=== PATIENT | male | born 1980 | race Caucasian/White ===

== ENCOUNTER → 2022-01-13 13:35 | Outpatient (BNVA) | payer MEDICARE, MEDICAID, SELFPAY | PROVIDERS: Visit Provider Family Medicine | DX: N18.6 End stage renal disease (principal); Z99.2 Dependence on renal dialysis; M25.50 Pain in unspecified joint; M25.40 Effusion, unspecified joint; R53.83 Other fatigue; R06.00 Dyspnea, unspecified; K50.90 Crohn's disease, unspecified, without complications; J40 Bronchitis, not specified as acute or chronic; D72.18 Eosinophilia in diseases classified elsewhere | CPT/HCPCS: 80053; 84439; 84443; 84550; 85025; 85651; 86140 ==

== ENCOUNTER → 2022-02-08 13:48 | Outpatient (BNVA) | payer MEDICARE, MEDICAID, SELFPAY | PROVIDERS: PCP Family Medicine; Referring Provider Family Medicine; Visit Provider Otolaryngology | DX: D72.18 Eosinophilia in diseases classified elsewhere (principal); J40 Bronchitis, not specified as acute or chronic; N18.6 End stage renal disease; R06.00 Dyspnea, unspecified; Z99.2 Dependence on renal dialysis; Z87.891 Personal history of nicotine dependence; I10 Essential (primary) hypertension; K21.9 Gastro-esophageal reflux disease without esophagitis; H69.83 Other specified disorders of Eustachian tube, bilateral; H93.12 Tinnitus, left ear | CPT/HCPCS: 99203; 99204 ==

== ENCOUNTER → 2022-03-02 11:10 | Outpatient (BNVA) | payer MEDICARE, MEDICAID, SELFPAY | PROVIDERS: PCP Family Medicine; Visit Provider Internal Medicine Pulmonary Disease | DX: D72.18 Eosinophilia in diseases classified elsewhere (principal); J40 Bronchitis, not specified as acute or chronic; N18.6 End stage renal disease; Z99.2 Dependence on renal dialysis; R06.00 Dyspnea, unspecified; Z87.891 Personal history of nicotine dependence | CPT/HCPCS: 99214 ==

== ENCOUNTER → 2022-03-09 09:33 | Outpatient (BNVA) | payer MEDICARE, MEDICAID, SELFPAY | PROVIDERS: PCP Family Medicine; Referring Provider Family Medicine; Visit Provider Internal Medicine Rheumatology | DX: M15.9 Polyosteoarthritis, unspecified (principal); L40.0 Psoriasis vulgaris; Z11.59 Encounter for screening for other viral diseases; Z11.1 Encounter for screening for respiratory tuberculosis; Z79.899 Other long term (current) drug therapy; M81.8 Other osteoporosis without current pathological fracture; E34.9 Endocrine disorder, unspecified; N18.6 End stage renal disease; Z99.2 Dependence on renal dialysis | CPT/HCPCS: 36415; 80076; 82306; 82565; 85025; 85651; 86140; 86200; 86431; 86480; 86704; 86803; 86812; 87340; 99204 ==

== ENCOUNTER 2022-03-18 14:51 | Observation (INO) | payer MEDICARE, MEDICAID, SELFPAY ==
[2022-03-18] VITALS (7 sets, daily range): BP systolic 116–148; BP diastolic 71–97; PULSE 82–165; RESP 16–21; TEMP 36.6; O2SAT 95–99; BMI 20.3
--- NOTE | 2022-03-18 15:25 | ECG_ITS ---
[facility] Test Date: 2022-03-18 Pat Name: Chidi Benz Department: Room: Gender: Male Ripening Room Hand: : 1980 Requested By: Hal Reynolds Order Number: [id number] Sage MD: Tatyana Byrd M.D. Measurements Intervals [place] Rate: 174 P: DC: QRS: 76 QRSD: 110 T: 67 QT: 257 QTc: 438 Interpretive Statements SUPRAVENTRICULAR TACHYCARDIA MINIMAL VOLTAGE CRITERIA FOR LVH, CONSIDER NORMAL VARIANT [MEETS CRITERIA IN ONE OF: R(aVL), S(V1), R(V5), R(V5/V6)+S(V1)] CRITICAL TEST RESULT No previous ECG available for comparison Electronically Signed On 03-18-2022 22:51:23 CDT by Tatyana Byrd M.D. [id number]
[2022-03-18] MEDS: adenosine 3 mg/mL SDV 2mL 6 MG IVP (15:35)
--- NOTE | 2022-03-18 15:36 | PC.NURSE ---
PT ARRIVED TO UNIT WITH HR OF 165. DR PERALTA AND NURSE ATTEMPTED TO SLOW HR BY HAVING PT BLOW THROUGH SMALL STRAW AND BEAR DOWN. HR DID NOT SLOW. PHYSICAN THEN GAVE VERBAL ORDER FOR 6MG OF ADENOSINE. TIME OUT CALLED AT 1532. PT GIVEN ADENOSINE 6MG AT 1535. PHYSICAN CONFIRMED RHYTHM IS A FLUTTER.
[2022-03-18] MEDS: sodium chloride 0.9% 1,000 ML 999 ML IV (15:44)
[2022-03-18] MEDS: dilTIAZem 5 mg/mL SDV 5 mL 20 MG IVP ×2 (15:45→16:30)
[2022-03-18 16:00] LABS: Basophils % 0.3 %; Eosinophils # 0.3 10^3/uL (0.0-0.8); Eosinophils % 2.2 %; Hematocrit 23.5 % (42.0-52.0); Hemoglobin 8.2 g/dL (11.7-16.6); Lymphocytes % 17.6 %; Mean Corpuscular HGB Conc 34.9 g/dL (30.0-36.0); Mean Corpuscular Hemoglobin 30.4 pg (28.0-34.0); Mean Platelet Volume 9.8 fL (7.4-10.4); Monocytes # 1.1 10^3/uL (0.2-0.9); Neutrophils # 7.71 10^3/uL (1.8-7.7); Neutrophils % 68.8 %; Nucleated Red Blood Cells % 0 %; Platelet Count 409 10^3/cmm (130-400); Red Cell Distribution Width 14.5 % (12.1-15.1); White Blood Count 11.2 10^3/uL (4.0-10.0)
[2022-03-18 16:18] LABS: D Dimer 0.45 ug/mIFEU (0-0.59)
[2022-03-18 16:27] LABS: Calcium 9.8 mg/dL (8.5-10.5); Carbon Dioxide 21 mmol/L (22-29); Chloride 90 mmol/L (98-107); Free T4 Free Thyroxine 0.99 ng/dL (0.82-1.77); Glomerular Filtration Rate 3.7 mL/min (90-130); Glucose 107 mg/dL (65-115); Magnesium 2.5 mg/dL (1.7-2.3); Osmolality Calculated 305 mOsm/kg (285-295); Sodium 134 mmol/L (136-145); Thyroid Stimulating Hormone 1.86 uIU/mL (0.27-4.20)
[2022-03-18] MEDS: dilTIAZem ER (12HR) 60 mg Capsule PO (16:28)
[2022-03-18 16:30] LABS: Anion Gap 27.4 (5-19); Blood Urea Nitrogen 86 mg/dL (6-20); Potassium 4.4 mmol/L (3.5-5.1)
--- NOTE | 2022-03-18 16:36 | XRR_ITS ---
PROCEDURE INFORMATION: Exam: XR Chest Exam date and time: 03/18/2022 4:42 PM Age: 41 years old Clinical indication: Shortness of breath; Additional info: Dyspnea TECHNIQUE: Imaging protocol: Radiologic exam of the chest. Views: 1 view. COMPARISON: CT chest [facility] [id number] 09/16/2021 8:36 AM FINDINGS: Lungs: Emphysematous changes of the lungs. No consolidation. Pleural spaces: No pleural effusion. No pneumothorax. Heart/Mediastinum: No cardiomegaly. Bones/joints: Visualized osseous structures are intact. XR/XR chest 1V portable [id number] IMPRESSION: No acute findings.
--- NOTE | 2022-03-18 16:39 | PC.NURSE ---
PHYSICIAN NOTIFIED OF CRITICAL LAB VALUES BUN 86 AND CREATININE 14.6. NO NEW ORDERS AT THIS TIME
--- NOTE | 2022-03-18 17:14 | W.ED.GENADLT ---
HPI - General Adult General: Chief complaint: Shortness of Breath/Dyspnea Stated complaint: sob Time Seen by Provider: 03/18/22 15:24 History of Present Illness: Patient is a 41-year-old male with perineal dialysis, diabetes who presents emergency room with concern generalized weakness fatigue shortness of breath. On arrival, patient was found to be in atrial flutter with RVR to 160. Patient has been complaining of sore throat, pleuritic chest pain, nausea/vomiting, melena or hematochezia. No other focal complaints Onset:2 days ago Duration:2 days Location:home Severity:moderate Associated symptoms: Reports dyspnea and malaise; Deny chest pain, nausea, rash, palpitations or vomiting Review of Systems Const: Reports: malaise and other (+generalized weakness); Denies: fever(s) or chills Eyes: Denies: change in vision ENMT: Denies: mouth pain Card: Denies: chest pain or palpitations Resp: Reports: dyspnea; Denies: non-productive cough GI: Denies: abdominal pain, nausea, vomiting or diarrhea : Denies: dysuria Musc: Denies: extremity pain Skin/Breast: Denies: rash or new lesions Neuro: Denies: weakness in extremities Psych: Reports: other (Normal mood) Bentley/Lymph: Denies: easy bruising PFSH ED PFSH: Medical History Inflammatory arthritis 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 Plaque psoriasis Surgical History History of hernia repair History of kidney surgery History of placement of ear tubes History of surgery on arm History of tonsillectomy and adenoidectomy Social History Smoking and tobacco status: never smoked Quit status (tobacco): has quit using tobacco Year quit tobacco: 2004 Former quit date comment: cigarettes then cigars Alcohol intake: never Marital status: History of recent travel: No Physical Exam Const: COMMON NORMALS: alert HENMT: COMMON NORMALS: atraumatic HEAD & SCALP: atraumatic MOUTH: moist mucous membranes not abnormal Eye: COMMON NORMALS: EOMs intact bilaterally and conjunctivae normal CONJUNCTIVA: Yes conjunctivae normal Neck/C-Spine: COMMON NORMALS: full ROM and supple Resp: COMMON NORMALS: normal respiratory effort and clear to auscultation bilaterally AUSCULTATION: clear to auscultation bilaterally Cardio: COMMON NORMALS: regular rate RATE: regular rate GI: COMMON NORMALS: Soft to palpation and non-tender PALPATION: Yes Soft to palpation OTHER: Peritoneal dialysis line in place Extremity: COMMON NORMALS: full ROM Neuro: SENSORIUM/ORIENTATION: Yes alert MOTOR EXAM: No Abnormal motor strength present and Other motor observations present (no focal motor deficits) Psych: COMMON NORMALS: speech normal SPEECH: Yes normal speech MOOD & AFFECT: Yes euthymic mood Course Vital Signs: Vital signs: Vital Signs Temperature 97.8 F 03/18/22 15:06 Pulse Rate 82 03/18/22 17:01 Respiratory Rate 16 03/18/22 16:30 Blood Pressure 126/79 03/18/22 17:01 Pulse Oximetry 99 03/18/22 16:30 MDM - General Adult Medical Decision Making 41-year-old male presents emergency room with plaints of generalized weakness, fatigue, shortness of breath x2 days. Physical exam, patient is noted to be in tachycardia with regular rates. Rest of exam unremarkable.. Dialysis site appears to be directly intact. Patient was found to have narrow complex tachycardia to 160. Initially could not discern P waves but this was SVT. Timeout, risks and giving adenosine discussed extensively patient elects to proceed with given density. Patient CC: Emergency room and the sole pattern revealed 41 atrial flutter. Patient then received 40 mg IV diltiazem, 60 mg p.o. diltiazem with improvement with atrial flutter with RVR to the 120s. Patient was then found into normal sinus rhythm. X-ray chest clear. Patient did have BUN of 80 up from baseline of 60. Case discussed with Dr. Gonzalez who will follow patient. Disposition: admission Lab Data : 03/18/22 15:44 03/18/22 15:44 Radiology Impressions Chest X-Ray 03/18/22 16:36 IMPRESSION: No acute findings. Laboratory Results WBC 11.2 10^3/uL (4.0-10.0) H 03/18/22 15:44 RBC 2.70 10^6/uL (4.1-5.3) L 03/18/22 15:44 Hgb 8.2 g/dL (11.7-16.6) L 03/18/22 15:44 Hct 23.5 % (42.0-52.0) L 03/18/22 15:44 MCV 87.0 fl (80-94) 03/18/22 15:44 MCH 30.4 pg (28.0-34.0) 03/18/22 15:44 MCHC 34.9 g/dL (30.0-36.0) 03/18/22 15:44 RDW 14.5 % (12.1-15.1) 03/18/22 15:44 Plt Count 409 10^3/cmm (130-400) H 03/18/22 15:44 MPV 9.8 fL (7.4-10.4) 03/18/22 15:44 Neut % (Auto) 68.8 % 03/18/22 15:44 Lymph % (Auto) 17.6 % 03/18/22 15:44 [place] % (Auto) 10.0 % 03/18/22 15:44 Eos % (Auto) 2.2 % 03/18/22 15:44 Baso % (Auto) 0.3 % 03/18/22 15:44 Neut # (Auto) 7.71 10^3/uL (1.8-7.7) H 03/18/22 15:44 Lymph # (Auto) 2.0 10^3/uL (0.8-4.8) 03/18/22 15:44 [place] # (Auto) 1.1 10^3/uL (0.2-0.9) H 03/18/22 15:44 Eos # (Auto) 0.3 10^3/uL (0.0-0.8) 03/18/22 15:44 Baso # (Auto) 0.0 10^3/uL (0.0-0.1) 03/18/22 15:44 Nucleated RBC % (auto) 0 % 03/18/22 15:44 Nucleated RBCs # 0.0 /100WBC 03/18/22 15:44 D-Dimer 0.45 ug/mIFEU (0-0.59) 03/18/22 15:44 Sodium 134 mmol/L (136-145) L 03/18/22 15:44 Potassium 4.4 mmol/L (3.5-5.1) 03/18/22 15:44 Chloride 90 mmol/L (98-107) L 03/18/22 15:44 Carbon Dioxide 21 mmol/L (22-29) L 03/18/22 15:44 Anion Gap 27.4 (5-19) H 03/18/22 15:44 BUN 86 mg/dL (6-20) H* 03/18/22 15:44 Creatinine 14.6 mg/dL (0.7-1.2) H* 03/18/22 15:44 GFR Calculation 3.7 mL/min (90-130) L 03/18/22 15:44 Glucose 107 mg/dL (65-115) 03/18/22 15:44 Calculated Osmolality 305 mOsm/kg (285-295) H 03/18/22 15:44 Calcium 9.8 mg/dL (8.5-10.5) 03/18/22 15:44 Magnesium 2.5 mg/dL (1.7-2.3) H 03/18/22 15:44 TSH 1.86 uIU/mL (0.27-4.20) 03/18/22 15:44 Free T4 0.99 ng/dL (0.82-1.77) 03/18/22 15:44 Imaging Data Other Imaging: Radiologist's impression: Launch?Image [address] [address] XRay Report Signed Patient: Chidi Benz Unit #: [id number] : 1980 Age/Sex: 41 / M ADM Date: 03/18/22 Loc: ER Room/Bed: Attending Dr: Ordering Provider/Ordering MD: Hal Reynolds MD Date of Service: 03/18/22 Procedure(s): XR chest 1V portable [id number] Accession Number(s): [id number] Report Number: [id number] PROCEDURE INFORMATION: Exam: XR Chest Exam date and time: 03/18/2022 4:42 PM Age: 41 years old Clinical indication: Shortness of breath; Additional info: Dyspnea TECHNIQUE: Imaging protocol: Radiologic exam of the chest. Views: 1 view. COMPARISON: CT chest [facility] [id number] 09/16/2021 8:36 AM FINDINGS: Lungs: Emphysematous changes of the lungs. No consolidation. Pleural spaces: No pleural effusion. No pneumothorax. Heart/Mediastinum: No cardiomegaly. Bones/joints: Visualized osseous structures are intact. XR/XR chest 1V portable [id number] IMPRESSION: No acute findings. ? Dictated By: Herberth Mon DO Signed By: Herberth Mon DO Signed Date/Time: 03/18/22 1717 DD/ 1642 Discharge Plan Discharge Patient Disposition: Admitted As Inpatient Clinical Impression: Atrial flutter with rapid ventricular response, Dyspnea Condition: Stable Coding Level of Care Code ED Instructor Programmable Controllers for Chg Fwd Exam Comprehensive
--- NOTE | 2022-03-18 17:36 | ECG_ITS ---
[facility] Test Date: 2022-03-18 Pat Name: Chidi Benz Department: Room: Gender: Male Histology Technician: : 1980 Requested By: Hal Reynolds Order Number: [id number] Alona MD: Tatyana Byrd M.D. Measurements Intervals [place] Rate: 83 P: 84 NV: 163 QRS: 77 QRSD: 96 T: 76 QT: 365 QTc: 429 Interpretive Statements SINUS RHYTHM INTERPRETATION BASED ON A DEFAULT AGE OF 40 YEARS Compared to ECG 03/18/2022 15:17:32 Supraventricular tachycardia no longer present Electronically Signed On 03-18-2022 22:50:57 CDT by Tatyana Byrd M.D. [id number] f
--- NOTE | 2022-03-18 18:41 | PC.NURSE ---
PT PLACED ON CONTINUOUS NIBP, SPO2, AND CM
--- NOTE | 2022-03-18 19:01 | PM.HP ---
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, on peritoneal dialysis, currently with postponement of consideration of kidney transplantation pending reassessment by pulmonology, also with polyarteritis, psoriatic arthritis, on steroids, completing taper down to 5 mg, with history of HTN, asthma, was feeling significantly short of breath today, he figured it was may be due to having his air conditioner cleaned of mold recently, and that he was trying to tough it out and stay in the living room, however, on arrival in ER was found to be in narrow complex tachycardia in the 160s, after 6 mg dose of adenosine noted to be in atrial flutter, was additionally given IV push of diltiazem, subsequently with conversion to sinus rhythm. He denies any history of atrial flutter or fibrillation previously. He denies other symptoms recently without any fever, chills, any abdominal pain, nausea, vomiting. Does have some history of peritonitis, but denies any similar symptoms. Did have some pinkish return from PD of which he notified his dialysis team. He does feel that he has fluid overload and should have used all green bags but due to have it again hung mixture of green and yellow bags. In ER chest x-ray is without acute findings. PCR viral panel had been requested and pending. He states he is otherwise feeling better. Denies any chest pain or pressure. TSH and free T4 normal. Magnesium 2.5. Potassium 4.4. D-dimer not elevated. Review of Systems Const: Denies: fever(s), chills, body aches or malaise Eyes: Denies: change in vision, eye discomfort or eye redness ENMT: Denies: throat pain, oral sores or ear or mastoid pain Card: Reports: palpitations and dyspnea on exertion; Denies: chest pain, edema or pre-syncope Resp: Reports: dyspnea; Denies: productive cough, change in phlegm color or hemoptysis GI: Denies: abdominal pain, nausea, vomiting, diarrhea, constipation, hematochezia or melena : Denies: flank pain, difficulty urinating, urinary frequency or hematuria Musc: Denies: back pain, joint swelling or joint redness Skin/Breast: Denies: rash or new lesions Neuro: Denies: headache(s), numbness in extremities, weakness in extremities, dizziness, confusion or seizure-like activity Endo: Denies: polyuria or polydipsia Bentley/Lymph: Denies: easy bleeding or tender lymph nodes All/Imm: Denies: urticaria or tongue swelling Medications/Allergies Home Medications Medication Instructions Recorded Confirmed Last Taken Type albuterol sulfate 90 mcg/actuation 2 puff INHALATION Q6H PRN 12/02/21 03/18/22 Unknown History aerosol inhaler loratadine 10 mg tablet (Claritin) 10 mg PO DAILY 02/08/22 03/18/22 03/18/22 History omega 4-gce-ukk-fish oil 60 mg-90 1 cap PO DAILY 02/08/22 03/18/22 03/18/22 History mg-500 mg capsule (Fish Oil) Saccharomyces boulardii 250 mg 5,000 mmu cells PO DAILY cap 03/09/22 03/18/22 03/18/22 History capsule (Daily Probiotic (S. 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 Plantar fasciitis of left foot Plaque psoriasis Surgical History History of hernia repair History of kidney surgery History of placement of ear tubes History of surgery on arm History of tonsillectomy and adenoidectomy Social History Smoking and tobacco status: former smoker Quit status (tobacco): has quit using tobacco Year quit tobacco: 2004 Former quit date comment: cigarettes then cigars Alcohol intake: never Lives independently: Yes Household members: spouse Marital status: History of recent travel: No Vitals/I&O/Wt Last Vital Signs Temp 97.8 F 03/18/22 15:06 Pulse 82 03/18/22 18:08 Resp 18 03/18/22 18:08 BP 117/79 03/18/22 18:08 Pulse Ox 95 03/18/22 18:08 Weight last 48 hrs Weight 68.039 kg Physical Exam Narrative: at bedside. Const: COMMON NORMALS: alert GENERAL APPEARANCE: cooperative ORIENTATION/CONSCIOUSNESS: Yes awake HENMT: COMMON NORMALS: normocephalic, EAC's normal, Normal external nose present and moist oral mucous membranes HEAD & SCALP: normocephalic NOSE: Normal external nose present EXTERNAL AUDITORY CANAL: EAC's normal Neck/C-Spine: COMMON NORMALS: no meningeal signs Chest: CHEST: Yes Symmetrical chest wall rise Resp: COMMON NORMALS: clear to auscultation bilaterally AUSCULTATION: clear to auscultation bilaterally Cardio: COMMON NORMALS: regular rate, regular rhythm and No murmurs present (Cardio) RATE: regular rate RHYTHM: regular rhythm GI: COMMON NORMALS: Normal to inspection, nondistended, normoactive bowel sounds present, Soft to palpation and non-tender PALPATION: Yes Soft to palpation OTHER: PD catheter. Extremity: COMMON NORMALS: no pedal edema Neuro: COMMON NORMALS: moves all extremities SENSORIUM/ORIENTATION: Yes alert MENINGEAL SIGNS: Yes no meningeal signs Psych: COMMON NORMALS: mental status grossly normal Skin: COMMON NORMALS: no wounds RASHES: no rashes Data : 03/18/22 15:44 03/18/22 15:44 A&P Assessment and plan (1) Atrial flutter with rapid ventricular response: New onset atrial flutter. He has reverted back to sinus rhythm. Not entirely clear trigger at this time. Possibly bronchopneumonia. Currently breathing is better. Had palpitations and shortness of breath with a flutter with RVR. Potassium and magnesium normal. Thyroid function normal. Complete troponin EKG series. TTE. History of HTN. Discussed consideration of aspirin for stroke risk reduction. His blood pressure can get soft sometimes. Discussed with him consideration of prescription of beta-meredith which she could take in case of tachycardia as needed, further consideration in case of recurrence of episodes. Status: Acute (2) Dyspnea: Resolved after resolution of atrial flutter with RVR. Chest x-ray not suggestive of acute pneumonia. Follow-up viral PCR panel. Status: Acute (3) ESRD on peritoneal dialysis: Appreciate nephrology assessment. He feels fluid overloaded, thinks he should have used a green bags last night, but due to have that he used a mixture of green and yellow. Does have some leukocytosis 11.2, predominantly neutrophilic. Denies abdominal pain. Does have history of peritonitis in the past. We will request for peritoneal fluid analysis, gram stain and culture. Status: Acute Plan History of HTN, resolved Inflammatory arthritis Plaque psoriasis Attestations Medical Necessity Statement*: Place in observation for additional assessment with new atrial flutter with with RVR in a gentleman with ESRD on peritoneal dialysis. Coding Level of Care Code Acute Entry Level Marketing Representative for Klaus Lehman Diagnoses Atrial flutter with rapid ventricular response I48.92 Dyspnea R06.00 ESRD on peritoneal dialysis N18.6; Z99.2
[2022-03-18 19:06] LABS: Adenovirus Not Detected (NOT DETECT); Chlamydia Pneumoniae Not Detected (NOT DETECT); Coronavirus 229E,HKU1,NL63,OC4 Not Detected (NOT DETECT); Human Metapneumovirus Not Detected (NOT DETECT); Human Rhinovirus/Enterovirus Not Detected (NOT DETECT); Influenza A Not Detected (NOT DETECT); Influenza A H1 Not Detected (NOT DETECT); Influenza A H1-2009 Not Detected (NOT DETECT); Influenza A H3 Not Detected (NOT DETECT); Influenza B Not Detected (NOT DETECT); Mycoplasma Pneumoniae Not Detected (NOT DETECT); Parainfluenza Virus Type 1 Not Detected (NOT DETECT); Parainfluenza Virus Type 2 Not Detected (NOT DETECT); Parainfluenza Virus Type 3 Not Detected (NOT DETECT); Parainfluenza Virus Type 4 Not Detected (NOT DETECT); Respiratory Syncytial Virus A Not Detected (NOT DETECT); Respiratory Syncytial Virus B Not Detected (NOT DETECT); SARS-COV-2 Not Detected (NOT DETECT)
--- NOTE | 2022-03-18 19:36 | ECG_ITS ---
[facility] Test Date: 2022-03-18 Pat Name: Chidi Benz Department: Room: Gender: Male Senior Trainer: : 1980 Requested By: Hal Reynolds Order Number: [id number] Sage MD: Tatyana Byrd M.D. Measurements Intervals [place] Rate: 160 P: VT: QRS: 67 QRSD: 89 T: 48 QT: 268 QTc: 438 Interpretive Statements ATRIAL FLUTTER WITH RAPID VENTRICULAR RESPONSE ST DEPRESSION, CONSIDER SUBENDOCARDIAL INJURY [0.1+ mV ST DEPRESSION] CRITICAL TEST RESULT Compared to ECG 03/18/2022 15:17:32 ST (T wave) deviation now present Supraventricular tachycardia no longer present Electronically Signed On 03-18-2022 23:06:52 CDT by Tatyana Byrd M.D. [id number] f
--- NOTE | 2022-03-18 19:45 | PC.NURSE ---
Attempted to call report, nurse unavailable and they said she will call me back
[2022-03-18 20:05] LABS: Troponin(5th) Baseline 511 ng/L (0-15)
--- NOTE | 2022-03-18 20:15 | PC.NURSE ---
Attempted to call report for 2nd time, nurse unavailable
--- NOTE | 2022-03-18 22:32 | PC.NURSE ---
Patient arrived to floor with at bedside stating he would like to leave against medical advice. He states he does peritoneal dialysis 10 hours nightly and this needs to be done. Dr. Renteria was notified he came to the floor and spoke with the patient about leaving AMA. Patient insisted that he needs to leave for his dialysis at home since he is already over on his water weight. Patient was placed on telemetry still sinus rhythm rate of 88. Dr. Renteria called in a prescription to [facility] that patient will rock picker tomorrow am. Patient states he will return to ER if any symptoms return. Patient left the floor at 2130
--- NOTE | 2022-03-19 18:12 | PM.DCS ---
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, on peritoneal dialysis, currently with postponement of consideration of kidney transplantation pending reassessment by pulmonology, also with polyarteritis, psoriatic arthritis, on steroids, completing taper down to 5 mg, with history of HTN, asthma, was feeling significantly short of breath today, he figured it was may be due to having his air conditioner cleaned of mold recently, and that he was trying to tough it out and stay in the living room, however, on arrival in ER was found to be in narrow complex tachycardia in the 160s, after 6 mg dose of adenosine noted to be in atrial flutter, was additionally given IV push of diltiazem, subsequently with conversion to sinus rhythm.? He denies any history of atrial flutter or fibrillation previously.? He denies other symptoms recently without any fever, chills, any abdominal pain, nausea, vomiting.? Does have some history of peritonitis, but denies any similar symptoms.? Did have some pinkish return from PD of which he notified his dialysis team.? He does feel that he has fluid overload and should have used all green bags but due to have it again hung mixture of green and yellow bags. In ER chest x-ray is without acute findings.? PCR viral panel had been requested and pending.? He states he is otherwise feeling better.? Denies any chest pain or pressure.? TSH and free T4 normal.? Magnesium 2.5.? Potassium 4.4.? D-dimer not elevated. Consideration of stroke risk reduction with aspirin was discussed as well as pill in pocket/as needed metoprolol was discussed in case of recurrence of atrial flutter. Among other, additional assessment with TTE, cardiac monitoring was requested. With pinkish return from PD also requested peritoneal fluid analysis and gram stain and culture. However, before completing any of the additional assessments he discharged himself RENÉ shortly after arriving on medical surgical floor the same evening. Physical Exam Narrative: I was not present during time of discharge. Discharge Data Studies Completed and Pending Completed Studies During Hospitalization Category Date Time Status XR chest 1V portable [id number] Urgent Exams 03/18/22 16:36 Completed Radiology Impressions Chest X-Ray 03/18/22 16:36 IMPRESSION: No acute findings. Laboratory Results WBC 11.2 10^3/uL (4.0-10.0) H 03/18/22 15:44 RBC 2.70 10^6/uL (4.1-5.3) L 03/18/22 15:44 Hgb 8.2 g/dL (11.7-16.6) L 03/18/22 15:44 Hct 23.5 % (42.0-52.0) L 03/18/22 15:44 MCV 87.0 fl (80-94) 03/18/22 15:44 MCH 30.4 pg (28.0-34.0) 03/18/22 15:44 MCHC 34.9 g/dL (30.0-36.0) 03/18/22 15:44 RDW 14.5 % (12.1-15.1) 03/18/22 15:44 Plt Count 409 10^3/cmm (130-400) H 03/18/22 15:44 MPV 9.8 fL (7.4-10.4) 03/18/22 15:44 Neut % (Auto) 68.8 % 03/18/22 15:44 Lymph % (Auto) 17.6 % 03/18/22 15:44 [place] % (Auto) 10.0 % 03/18/22 15:44 Eos % (Auto) 2.2 % 03/18/22 15:44 Baso % (Auto) 0.3 % 03/18/22 15:44 Neut # (Auto) 7.71 10^3/uL (1.8-7.7) H 03/18/22 15:44 Lymph # (Auto) 2.0 10^3/uL (0.8-4.8) 03/18/22 15:44 [place] # (Auto) 1.1 10^3/uL (0.2-0.9) H 03/18/22 15:44 Eos # (Auto) 0.3 10^3/uL (0.0-0.8) 03/18/22 15:44 Baso # (Auto) 0.0 10^3/uL (0.0-0.1) 03/18/22 15:44 Nucleated RBC % (auto) 0 % 03/18/22 15:44 Nucleated RBCs # 0.0 /100WBC 03/18/22 15:44 D-Dimer 0.45 ug/mIFEU (0-0.59) 03/18/22 15:44 Sodium 134 mmol/L (136-145) L 03/18/22 15:44 Potassium 4.4 mmol/L (3.5-5.1) 03/18/22 15:44 Chloride 90 mmol/L (98-107) L 03/18/22 15:44 Carbon Dioxide 21 mmol/L (22-29) L 03/18/22 15:44 Anion Gap 27.4 (5-19) H 03/18/22 15:44 BUN 86 mg/dL (6-20) H* 03/18/22 15:44 Creatinine 14.6 mg/dL (0.7-1.2) H* 03/18/22 15:44 GFR Calculation 3.7 mL/min (90-130) L 03/18/22 15:44 Glucose 107 mg/dL (65-115) 03/18/22 15:44 Calculated Osmolality 305 mOsm/kg (285-295) H 03/18/22 15:44 Calcium 9.8 mg/dL (8.5-10.5) 03/18/22 15:44 Magnesium 2.5 mg/dL (1.7-2.3) H 03/18/22 15:44 Troponin T Baseline 511 ng/L (0-15) H* 03/18/22 15:44 TSH 1.86 uIU/mL (0.27-4.20) 03/18/22 15:44 Free T4 0.99 ng/dL (0.82-1.77) 03/18/22 15:44 Nasal Influ A H1 2008 PCR Not detected (NOT DETECT) 03/18/22 17:08 Adenovirus (PCR) Not detected (NOT DETECT) 03/18/22 17:08 C. pneumoniae DNA (PCR) Not detected (NOT DETECT) 03/18/22 17:08 Coronavirus 229E (PCR) Not detected (NOT DETECT) 03/18/22 17:08 Human Metapneumovir PCR Not detected (NOT DETECT) 03/18/22 17:08 Influenza A (H1) PCR Not detected (NOT DETECT) 03/18/22 17:08 Influenza A (H3) PCR Not detected (NOT DETECT) 03/18/22 17:08 Influenza Type A (PCR) Not detected (NOT DETECT) 03/18/22 17:08 Influenza Type B (PCR) Not detected (NOT DETECT) 03/18/22 17:08 M. pneumoniae (PCR) Not detected (NOT DETECT) 03/18/22 17:08 Parainfluenza 1 (PCR) Not detected (NOT DETECT) 03/18/22 17:08 Parainfluenza 2 (PCR) Not detected (NOT DETECT) 03/18/22 17:08 Parainfluenza 3 (PCR) Not detected (NOT DETECT) 03/18/22 17:08 Parainfluenza 4 (PCR) Not detected (NOT DETECT) 03/18/22 17:08 RSV Type A (PCR) Not detected (NOT DETECT) 03/18/22 17:08 RSV Type B (PCR) Not detected (NOT DETECT) 03/18/22 17:08 Entero/Rhino (PCR) Not detected (NOT DETECT) 03/18/22 17:08 SARS-CoV-2 (PCR) Not detected (NOT DETECT) 03/18/22 17:08 Vitals Last Vital Signs Temp 97.8 F 03/18/22 15:06 Pulse 89 03/18/22 20:39 Resp 18 03/18/22 20:39 BP 129/89 03/18/22 20:39 Pulse Ox 97 03/18/22 20:39 Discharge Plan Discharge Patient Disposition: Left Against Medical Advice Condition: Stable Prescriptions: New metoprolol succinate 50 mg tablet extended release 24 hr 50 mg PO DAILY PRN (Reason: tachyarrhythmias) Qty: 30 0RF Rx Instructions: Take one tablet by mouth for HR>100 No Action albuterol sulfate 90 mcg/actuation HFA aerosol inhaler 2 puff inhalation Q6H PRN (Reason: Shortness Of Breath) 0RF Saccharomyces boulardii [Daily Probiotic (S. boulardii)] 250 mg capsule 5,000 mmu cells PO DAILY 0RF prednisone 20 mg tablet See Rx Instructions PO .COMPLEX PRN (Reason: joint pain flare) Qty: 30 1RF Rx Instructions: take 1 tab daily for 3-7 days as needed for arthritis flare PO PRN; loratadine [Claritin] 10 mg tablet 10 mg PO DAILY 0RF omega 8-roy-xui-fish oil [Fish Oil] 60-90-500 mg capsule 1 cap PO DAILY 0RF Humira Pen 40 mg/0.8 mL pen injector kit 40 mg SUBCUT Q14D Qty: 2 3RF Referrals: Jonathan Hay DO [Primary Care Provider] - Patient Instructions: Opioid Safety Discharge Attestations Time Spent in Discharge Care*: greater than 30 min Quality Metrics Clinical Quality Measures [ No reported AMI, CVA or VTE this stay] Coding Level of Care Code Acute Chg FW DC note Diagnoses Atrial flutter with rapid ventricular response I48.92 Dyspnea R06.00 ESRD on peritoneal dialysis N18.6; Z99.2
== END 2022-03-18 21:30 | disposition left against medical advice (07) ==
LOC: ER 15:56 → MEDSURG 19:36
PROVIDERS: Admitting Provider Internal Medicine; Emergency Provider Emergency Medicine; PCP Family Medicine; Visit Provider Internal Medicine
DX: I48.91 Unspecified atrial fibrillation (principal); R06.00 Dyspnea, unspecified; I12.9 Hypertensive chronic kidney disease with stage 1 through stage 4 chronic kidney disease, or unspecified chronic kidney disease; N18.6 End stage renal disease; Z99.2 Dependence on renal dialysis; Z87.891 Personal history of nicotine dependence
CPT/HCPCS: 71045; 80048; 83735; 84439; 84443; 84484; 85025; 85378; 87486; 87581; 87633; 93005; 96374; 96375; 96376; 99285; G0378; J0153; J3490; J7030

== ENCOUNTER 2022-04-28 12:23 | Outpatient (CLI) | payer MEDICARE, MEDICAID, SELFPAY ==
--- NOTE | 2022-04-28 12:15 | CT_ITS ---
WS: [id number] CT CHEST WITHOUT INTRAVENOUS CONTRAST HISTORY: r/o interstitial lung disease TECHNIQUE: Contiguous 5 mm axial imaging performed on the thorax. Coronal and sagittal reformats are submitted. All CT scans at [facility] use at least one of these dose optimization techniques: automated exposure control; mA and/or kV adjustment per patient size (includes targeted exams where dose is matched to clinical indication); or iterative reconstruction. CONTRAST: None DLP: 629.68 mGy.cm COMPARISON: 09/16/2021 and 01/11/2021 Lungs and central airway: Marked pulmonary hyperinflation. Patchy areas of groundglass attenuation ar e noted bilaterally but greatest in the upper lobes. The groundglass attenuation has mildly progresse d since 09/16/2021 in the upper lobes. Additional groundglass attenuation in the lower lobes but to a lesser extent. Again noted is the focal lucency in the RIGHT upper lobe measuring 5.2 x 4.7 cm which may be a cluster of cysts or air trapping. There are additional scattered but much smaller lucencies throughout the remaining lungs. Some of these lucencies follow a tubular configuration in the RIGHT lower lobe. No mass. There is no honeycombing or traction bronchiectasis. Pleura: Normal. No pleural effusion. Heart and pericardium: Normal size heart with no pericardial effusion. Mediastinum and janelle: No mediastinum or hilar adenopathy. Vessels: Normal size aortic and pulmonary artery. No coronary artery calcifications. Chest wall and lower neck: No soft tissue masses. Upper abdomen: Small volume ascites noted adjacent to the liver and in the LEFT upper abdomen. Marked atrophy of the kidneys. No adrenal mass. Stomach is moderately distended with food products. Osseous structures: No destructive process. CT/CT chest wo con [id number] IMPRESSION: 1. Marked pulmonary hyperinflation. 2. Diffuse bilateral patchy groundglass opacifications, greatest in the upper lobes. Minimal progression since 09/16/2021. Favor hypersensitivity pneumonia a s a possible etiology. May be related to inhalation agent or medicinal. 3. No adenopathy. 4. Unchanged small volume ascites and severe renal atrophy.
== END 2022-04-28 12:24 | disposition home or self-care (01) ==
LOC: RAD 12:24
PROVIDERS: PCP Family Medicine; Visit Provider Internal Medicine Pulmonary Disease
DX: J18.0 Bronchopneumonia, unspecified organism (principal); M19.90 Unspecified osteoarthritis, unspecified site; M25.40 Effusion, unspecified joint; M25.50 Pain in unspecified joint; R06.00 Dyspnea, unspecified; R18.8 Other ascites
CPT/HCPCS: 71250

== ENCOUNTER → 2022-05-22 18:55 | Outpatient (BNVA) | payer MEDICARE, MEDICAID, SELFPAY | PROVIDERS: PCP Family Medicine; Visit Provider Family Medicine | DX: R22.9 Localized swelling, mass and lump, unspecified (principal) | CPT/HCPCS: 80053; 83735; 84100; 84550; 85025 ==

== ENCOUNTER → 2022-06-21 13:15 | Outpatient (BNVA) | payer MEDICARE, MEDICAID, SELFPAY | PROVIDERS: PCP Family Medicine; Visit Provider Internal Medicine Rheumatology | DX: M15.9 Polyosteoarthritis, unspecified (principal); L40.0 Psoriasis vulgaris; N18.6 End stage renal disease; Z99.2 Dependence on renal dialysis; Z82.61 Family history of arthritis; E89.2 Postprocedural hypoparathyroidism | CPT/HCPCS: 99214 ==

== ENCOUNTER 2022-06-25 06:00 | Outpatient (RCR) | payer MEDICARE, MEDICAID, SELFPAY | END 2022-07-25 23:59 | disposition home or self-care (01) | LOC: SPT 06:00 | PROVIDERS: PCP Family Medicine; Visit Provider Family Medicine | DX: M25.561 Pain in right knee (principal); M25.562 Pain in left knee; R29.898 Other symptoms and signs involving the musculoskeletal system | CPT/HCPCS: 97110; 97162 ==

== ENCOUNTER 2022-07-26 06:00 | Outpatient (RCR) | payer MEDICARE, MEDICAID, SELFPAY | END 2022-08-05 13:48 | disposition home or self-care (01) | LOC: SPT 06:00 | PROVIDERS: PCP Family Medicine; Visit Provider Family Medicine | DX: M25.561 Pain in right knee (principal); M25.562 Pain in left knee; R29.898 Other symptoms and signs involving the musculoskeletal system | CPT/HCPCS: 97110 ==

== ENCOUNTER 2022-09-07 08:20 | Inpatient (IN) | payer MEDICARE, MEDICAID, SELFPAY ==
[2022-09-07] VITALS (116 sets, daily range): BP systolic 105–199; BP diastolic 43–145; PULSE 129–149; RESP 9–36; TEMP 36.6–37.4; O2SAT 87–100; BMI 19.0
--- NOTE | 2022-09-07 08:34 | XRR_ITS ---
PROCEDURE INFORMATION: Exam: XR Chest Exam date and time: 09/07/2022 8:53 AM Age: 42 years old Clinical indication: Cough and dyspnea; Prior surgery; Surgery type: Parathyroidectomy, dialysis port; Patient HX: A fib since yesterday. ; Additional info: Dyspnea/cough TECHNIQUE: Imaging protocol: Radiologic exam of the chest. Views: 1 view. COMPARISON: CT chest con [id number] 04/28/2022 12:51 PM FINDINGS: Tubes, catheters and devices: Right internal jugular dialysis catheter is seen with tip overlying the right atrium. Lungs: Normal lung volumes. No interstitial or airspace opacities. Pleural spaces: No pleural effusion. No pneumothorax. Heart/Mediastinum: Normal heart size. Normal mediastinal contour. Midline trachea. Bones/joints: No acute abnormalities. Unchanged asymmetric left 1st costochondral degenerative changes are seen. Soft tissues: Multiple external densities are seen overlying the chest, limiting assessment. XR/XR chest 1V portable [id number] IMPRESSION: No chest radiographic evidence of acute cardiopulmonary disease.
--- NOTE | 2022-09-07 08:34 | ECG_ITS ---
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 Measurements Intervals [place] Rate: 146 P: 0 [place]: 0 QRS: 71 QRSD: 90 T: 70 QT: 271 QTc: 423 Interpretive Statements ATRIAL FLUTTER/TACHYCARDIA WITH RAPID VENTRICULAR RESPONSE MODERATE ST DEPRESSION [0.05+ mV ST DEPRESSION] Compared to ECG 03/18/2022 16:52:58 ST (T wave) deviation now present Sinus rhythm no longer present Electronically Signed On 09-07-2022 18:08:23 [employer]M [employer] by Edward Burnett M.D. [email or web address] [id number] f
--- NOTE | 2022-09-07 08:54 | ED_ITS ---
HPI - Arrhythmia/Palpitations General: Chief Complaint: Arrhythmia/Palpitations Stated Complaint: afib since yesterday Time Seen by Provider: 09/07/22 08:33 Source: patient Mode of arrival: ambulatory History of Present Illness: 42-year-old male who presents to the emergency room with complaint of rapid heart rate for the last 2 days. He has a known history of atrial fibrillation and has been in and out of A. fib for last couple days but persistent since last night. Patient is on dialysis due to renal failure from IgA nephropathy. He currently is on metoprolol however he has been having difficulty without keeping his rate under control he is not anticoagulated. Patient has noticed decreased exercise tolerance and shortness of breath but he has not had any chest pain. MD complaint: rapid heart beat, heart racing , palpitations and irregular heart beat Onset (ago): day(s) (2) Duration: intermittent Severity: moderate Arrhythmia history: atrial fibrillation Associated symptoms: Reports short of breath; Deny anxiety, cough, diaphoresis, muscle cramps, nausea, paresthesias, pre- syncope, sense of impending doom, syncope or vomiting Review of Systems Const: Reports: fatigue; Denies: fever(s), chills or diaphoresis ENMT: Denies: throat pain, ear or mastoid pain, nasal discharge or nasal congestion Card: Reports: edema, swelling of feet/ankles and dyspnea on exertion; Denies: chest pain, palpitations, irregular heart rhythm, syncope or pre-syncope Resp: Reports: dyspnea; Denies: productive cough or non-productive cough GI: Denies: abdominal pain, nausea or vomiting : Denies: flank pain, dysuria, urinary frequency or urinary urgency Musc: Denies: muscle cramps Skin/Breast: Denies: rash or pruritus Psych: Denies: anxiety PFSH ED PFSH: Medical History Atrial flutter with rapid ventricular response Celiac disease Close exposure to COVID-19 virus Inflammatory arthritis Neuropathy 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 Plantar fasciitis of left foot Plaque psoriasis Psoriatic arthritis Surgical History History of hernia repair History of kidney surgery History of placement of ear tubes History of surgery on arm History of tonsillectomy and adenoidectomy Social History Smoking and tobacco status: former smoker Quit status (tobacco): has quit using tobacco Year quit tobacco: 2004 Former quit date comment: cigarettes then cigars Alcohol intake: never Lives independently: Yes Household members: spouse Marital status: History of recent travel: No Physical Exam Const: COMMON NORMALS: no acute distress GENERAL APPEARANCE: cooperative and comfortable ORIENTATION/CONSCIOUSNESS: Yes awake, Yes oriented to person, Yes oriented to place and Yes oriented to time HENMT: COMMON NORMALS: normocephalic, atraumatic and hearing grossly normal bilaterally HEAD & SCALP: normocephalic and atraumatic Resp: COMMON NORMALS: normal respiratory effort, No retractions, No use of accessory muscles and clear to auscultation bilaterally AUSCULTATION: clear to auscultation bilaterally Cardio: RATE: tachycardic RHYTHM: abnormal rhythm irregularly irregular GI: COMMON NORMALS: Soft to palpation and No hepatosplenomegaly present AUSCULTATION: Yes normoactive bowel sounds PALPATION: Yes Soft to palpation, No Tenderness to palpation present (GI), No Guarding due to palpation present (GI) and Yes No hepatosplenomegaly present Extremity: COMMON NORMALS: normal to inspection, capillary refill normal, no clubbing, cyanosis or edema, no calf tenderness and no pedal edema Neuro: SENSORIUM/ORIENTATION: Yes oriented to person, Yes oriented to place and Yes oriented to time Skin: COMMON NORMALS: no rashes or lesions noted GENERAL SKIN EXAM: no rashes or lesions noted Course Vital Signs: Vital signs: Vital Signs Temperature 99.3 F 09/07/22 08:29 Pulse Rate 136 H 09/07/22 16:25 Respiratory Rate 22 H 09/07/22 16:25 Blood Pressure 162/121 09/07/22 16:25 Pulse Oximetry 99 09/07/22 16:25 Oxygen Delivery Me thod 09/07/22 08:59 MDM - Arrhythmia/Palpitations Medical Decision Making Did not respond to Cardizem we will switch him to esmolol and titrate up. Will admit to hospitalist service consult nephrology discussed Dr. Meadows orders written Medical Records I reviewed the patient's medical records. Lab Data I reviewed the patient's lab results. 09/07/22 08:51 09/07/22 08:51 Radiology Impressions Chest X-Ray 09/07/22 08:34 IMPRESSION: No chest radiographic evidence of acute cardiopulmonary disease. Laboratory Results WBC 6.5 10^3/uL (4.0-10.0) 09/07/22 08:51 RBC 2.50 10^6/uL (4.1-5.3) L 09/07/22 08:51 Hgb 7.0 g/dL (11.7-16.6) L 09/07/22 08:51 Hct 22.4 % (42.0-52.0) L 09/07/22 08:51 MCV 89.6 fl (80-94) 09/07/22 08:51 MCH 28.0 pg (28.0-34.0) 09/07/22 08:51 MCHC 31.3 g/dL (30.0-36.0) 09/07/22 08:51 RDW 15.6 % (12.1-15.1) H 09/07/22 08:51 Plt Count 257 10^3/cmm (130-400) 09/07/22 08:51 MPV 9.9 fL (7.4-10.4) 09/07/22 08:51 Neut % (Auto) 55.9 % 09/07/22 08:51 Lymph % (Auto) 22.5 % 09/07/22 08:51 [place] % (Auto) 12.1 % 09/07/22 08:51 Eos % (Auto) 8.7 % 09/07/22 08:51 Baso % (Auto) 0.5 % 09/07/22 08:51 Neut # (Auto) 3.65 10^3/uL (1.8-7.7) 09/07/22 08:51 Lymph # (Auto) 1.5 10^3/uL (0.8-4.8) 09/07/22 08:51 [place] # (Auto) 0.8 10^3/uL (0.2-0.9) 09/07/22 08:51 Eos # (Auto) 0.6 10^3/uL (0.0-0.8) 09/07/22 08:51 Baso # (Auto) 0.0 10^3/uL (0.0-0.1) 09/07/22 08:51 Nucleated RBC % (auto) 0 % 09/07/22 08:51 Nucleated RBCs # 0.0 /100WBC 09/07/22 08:51 Sodium 140 mmol/L (136-145) 09/07/22 08:51 Potassium 5.5 mmol/L (3.5-5.1) H 09/07/22 08:51 Chloride 97 mmol/L (98-107) L 09/07/22 08:51 Carbon Dioxide 33 mmol/L (22-29) H 09/07/22 08:51 Anion Gap 15.5 (5-19) 09/07/22 08:51 BUN 31 mg/dL (6-20) H 09/07/22 08:51 Creatinine 5.6 mg/dL (0.7-1.2) H* 09/07/22 08:51 GFR Calculation 11.2 mL/min (90-130) L 09/07/22 08:51 Glucose 122 mg/dL (65-115) H 09/07/22 08:51 Calculated Osmolality 298 mOsm/kg (285-295) H 09/07/22 08:51 Calcium 9.8 mg/dL (8.5-10.5) 09/07/22 08:51 Magnesium 2.5 mg/dL (1.7-2.3) H 09/07/22 08:57 Total Bilirubin 0.2 mg/dL (0.15-1.2) 09/07/22 08:51 AST 16 U/L (0-40) 09/07/22 08:51 ALT 20 U/L (0-41) 09/07/22 08:51 Alkaline Phosphatase 70 U/L (40-130) 09/07/22 08:51 Troponin T Baseline 366 ng/L (0-15) H* 09/07/22 08:51 Total Protein 6.7 g/dL (6.6-8.7) 09/07/22 08:51 Albumin 3.4 g/dL (3.5-5.2) L 09/07/22 08:51 Globulin 3.3 g/dL (1.3-4.6) 09/07/22 08:51 TSH 1.97 uIU/mL (0.27-4.20) 09/07/22 08:57 Discharge Plan Discharge Patient Disposition: Admitted As Inpatient Admit Provider: Tavo Meadows Clinical Impression: Atrial flutter with rapid ventricular response, Crohn's disease, End stage renal disease on dialysis Condition: Stable Coding Level of Care Code ED Pneumatic Press Hand for Chg Fwd Exam Detailed
[2022-09-07 09:01] LABS: Basophils % 0.5 %; Eosinophils # 0.6 10^3/uL (0.0-0.8); Eosinophils % 8.7 %; Hematocrit 22.4 % (42.0-52.0); Lymphocytes # 1.5 10^3/uL (0.8-4.8); Lymphocytes % 22.5 %; Mean Corpuscular HGB Conc 31.3 g/dL (30.0-36.0); Mean Corpuscular Volume 89.6 fl (80-94); Mean Platelet Volume 9.9 fL (7.4-10.4); Monocytes # 0.8 10^3/uL (0.2-0.9); Monocytes % 12.1 %; Neutrophils # 3.65 10^3/uL (1.8-7.7); Neutrophils % 55.9 %; Nucleated Red Blood Cells % 0 %; Platelet Count 257 10^3/cmm (130-400); Red Cell Distribution Width 15.6 % (12.1-15.1); White Blood Count 6.5 10^3/uL (4.0-10.0)
[2022-09-07] MEDS: dilTIAZem 100 MG in sodium chloride 0.9% (add-van) 100 ML 10 MG IV (09:08)
[2022-09-07 09:17] LABS: Alanine Aminotransferase 20 U/L (0-41); Albumin Level 3.4 g/dL (3.5-5.2); Alkaline Phosphatase 70 U/L (40-130); Anion Gap 15.5 (5-19); Aspartate Amino Transferase 16 U/L (0-40); Blood Urea Nitrogen 31 mg/dL (6-20); Calcium 9.8 mg/dL (8.5-10.5); Carbon Dioxide 33 mmol/L (22-29); Chloride 97 mmol/L (98-107); Globulin 3.3 g/dL (1.3-4.6); Glomerular Filtration Rate 11.2 mL/min (90-130); Glucose 122 mg/dL (65-115); Osmolality Calculated 298 mOsm/kg (285-295); Potassium 5.5 mmol/L (3.5-5.1); Sodium 140 mmol/L (136-145); Total Bilirubin 0.2 mg/dL (0.15-1.2); Total Protein 6.7 g/dL (6.6-8.7)
[2022-09-07] MEDS: dilTIAZem 5 mg/mL SDV 5 mL 20 MG IVP (09:20)
[2022-09-07 09:23] LABS: Troponin(5th) Baseline 366 ng/L (0-15)
[2022-09-07] MEDS: esmolol drip 2,500 MG/250 ML PREMIX 50 MG IV (10:44)
[2022-09-07 11:01] LABS: Troponin 5 2HR Delta -15.3 ABS# (0-10)
[2022-09-07 11:02] LABS: Troponin 5 2HR 350.7 ng/L (0-15)
--- NOTE | 2022-09-07 11:02 | ECG_ITS ---
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 Measurements Intervals [place] Rate: 143 P: 0 [place]: 0 QRS: 75 QRSD: 86 T: 69 QT: 278 QTc: 430 Interpretive Statements ATRIAL FLUTTER/TACHYCARDIA WITH RAPID VENTRICULAR RESPONSE JUNCTIONAL ST DEPRESSION, CONSIDER NORMAL VARIANT [0.1+ mV JUNCTIONAL DEPRESSION] ABNORMAL RHYTHM ECG Compared to ECG 09/07/2022 08:30:46 No significant changes Electronically Signed On 09-07-2022 18:26:45 [employer]AG [employer]ER by Edward Burnett M.D. [id number]
[2022-09-07] MEDS: esmolol drip 2,500 MG/250 ML PREMIX 100 MG IV (11:18)
--- NOTE | 2022-09-07 11:21 | P.HP_ITS ---
Providers/Chief Complaint Admitting Physician: Tavo Meadows MD Primary Care Provider: Jonathan Hay DO Chief Complaint: afib since yesterday History of Present Illness Chidi Benz is a 42 year old male who presents to the emergency department complaints of palpitations. He states he has had this intermittently, but usually does not last this long. Current episode has been going on for several days. He reports he took some metoprolol that he had been given to take as needed but it does not seem like it has been helping. He denies any significant chest pain. He does relate that he feels short of breath when he gets up and walks around. Some dizziness. Recently moved to hemodialysis, and last dialysis was yesterday. No recent fever, cough, other illness. He reports he stopped using his peritoneal dialysis catheter and went to hemodialysis after he had a hemorrhage from it. He reports he has not been getting Epogen lately which usually keeps his blood count up. In the emergency department Cardizem was tried, and did not seem to lower his heart rate. Esmolol was then initiated. Review of Systems General: Reports: 10 or more systems reviewed and unremarkable except in HPI and below Const: Reports: malaise; Denies: fever(s) or chills Eyes: Denies: change in vision ENMT: Denies: throat pain Card: Reports: palpitations; Denies: chest pain Resp: Reports: dyspnea GI: Denies: abdominal pain or hematochezia : Denies: flank pain Musc: Denies: neck pain Skin/Breast: Denies: rash Neuro: Denies: headache(s) Psych: Denies: anxiety or depression Endo: Denies: polyuria Bentley/Lymph: Denies: easy bruising All/Imm: Reports: other (Has celiac disease); Denies: urticaria Medications/Allergies Home Medications Medication Instructions Recorded Confirmed Last Taken Type albuterol sulfate 90 mcg/actuation 2 puff inhalation Q6H PRN 12/02/21 09/07/22 Unknown History aerosol inhaler Shortness Of Breath omega 8-gmz-mhe-fish oil 60 mg-90 1 cap PO DAILY 02/08/22 09/07/22 03/18/22 History mg-500 mg capsule (Fish Oil) Saccharomyces boulardii 250 mg 5,000 mmu cells PO DAILY 03/09/22 09/07/2203/18/22 History capsule (Daily Probiotic (S. boulardii)) metoprolol succinate 50 mg 50 mg PO DAILY PRN 03/18/22 09/07/22 09/06/22 Rx tablet,extended release 24 hr tachyarrhythmias #30 tabs sildenafil (pulm.hypertension) 20 20 mg PO DAILY PRN sexual activity 06/27/22 09/07/22 Unknown Rx mg tablet #30 tabs ondansetron 4 mg disintegrating 4 mg PO Q8H #30 tabs 09/01/22 09/07/22 Unknown Rx tablet oxycodone 5 mg tablet 5 mg PO Q8H PRN Pain 09/07/22 09/07/22 Unknown History Allergies Allergy/AdvReac Type Severity Reaction Status Date / Time No Known Allergies Allergy Verified 09/07/22 09:10 PFSH Acute PFSH: Medical History Atrial flutter with rapid ventricular response Celiac disease Close exposure to COVID-19 virus Inflammatory arthritis Neuropathy 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 Plantar fasciitis of left foot Plaque psoriasis Psoriatic arthritis Surgical History History of hernia repair History of kidney surgery History of placement of ear tubes History of surgery on arm History of tonsillectomy and adenoidectomy Social History Smoking and tobacco status: former smoker Quit status (tobacco): has quit using tobacco Year quit tobacco: 2004 Former quit date comment: cigarettes then cigars Alcohol intake: never Lives independently: Yes Household members: spouse Marital status: History of recent travel: No Vitals/I&O/Wt Last Vital Signs Temp 99.3 F 09/07/22 08:29 Pulse 143 H 09/07/22 11:10 Resp 15 09/07/22 11:10 BP 168/134 09/07/22 11:10 Pulse Ox 93 09/07/22 11:10 O2 Del Method 09/07/22 08:59 09/06/22 09/07/22 09/07/22 22:59 06:59 14:59 Intake Total 277.25 / 277.25 Balance 277.25 / 277.25 Weight last 48 hrs Weight 63.503 kg Physical Exam Narrative: General exam is a conversant male, no distress HEENT: Atraumatic normocephalic. Pupils equally round. Oropharynx clear. Neck is supple no lymphadenopathy or thyromegaly Cardiovascular tachycardic, regular, no murmur. Right chest demonstrates dialysis catheter Lungs clear no wheezing or crackles Abdomen demonstrates peritoneal dialysis catheter. No tenderness. No obvious organomegaly. exam is deferred Extremities show no cyanosis clubbing or edema, cap refill brisk Skin no rash Neuro no obvious focal deficits. Data 09/07/22 08:51 09/07/22 08:51 Other Labs: Magnesium is 2.5, LFTs normal. Troponin is 366 with repeat of 350 Albumin 3.4 TSH 1.97 Chest x-rayDialysis catheter noted. No infiltrate EKG demonstrates atrial flutter, normal axis, nonspecific ST-T wave changes A&P Assessment and plan (1) Atrial flutter with rapid ventricular response: Admission to ICU. He has failed Cardizem, and esmolol was not controlling the rate as adequately as we would hope. Patient has had recurrent episodes of atrial flutter TSH was checked and normal. Magnesium slightly high. Potassium is slightly elevated, but not tremendously so for this dialysis patient Continue esmolol, titrate for rate control Initiate Cardizem 30 mg every 6 hours, and metoprolol 50 mg twice daily Heparin for DVT prophylaxis. Will discuss with him anticoagulation after calculating his [id number] score but I suspect he will not have Cardiology consultation should he not come under control (2) Anemia: Does have significant anemia Will defer to nephrology regarding Epogen. At this point he appears to be hemodynamically stable. (3) End stage renal disease on dialysis: Nephrology consult for continued hemodialysis Plan History of celiac disease. Placed on gluten-free diet Other medical problems as outlined in past medical history Full code Pharmacologic prophylaxis contraindicated secondary to significant anemia. Mechanical prophylaxis was placed. Attestations Medical Necessity Statement*: May require less than 2 midnight stay for evaluation and treatment of atrial flutter with rapid ventricular rate. 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
[2022-09-07] MEDS: dilTIAZem 30 mg Tablet PO ×3 (11:56→22:52)
[2022-09-07 12:08] LABS: Magnesium 2.5 mg/dL (1.7-2.3); Thyroid Stimulating Hormone 1.97 uIU/mL (0.27-4.20)
--- NOTE | 2022-09-07 15:22 | ECG_ITS ---
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 Measurements Intervals [place] Rate: 142 P: 0 DE: 0 QRS: 73 QRSD: 82 T: 67 QT: 277 QTc: 426 Interpretive Statements ATRIAL FLUTTER/TACHYCARDIA WITH RAPID VENTRICULAR RESPONSE MODERATE ST DEPRESSION [0.05+ mV ST DEPRESSION] Compared to ECG 09/07/2022 11:02:54 No significant changes Electronically Signed On 09-07-2022 18:27:56 HAM PASSER by Edward Burnett M.D. [id number]
[2022-09-07 15:55] LABS: Troponin 5 6HR 328.7 ng/L (0-15)
[2022-09-07] MEDS: hyDRALAzine 20 mg/mL INJ 1 mL 10 MG IVP (16:15)
[2022-09-07] MEDS: esmolol drip 2,500 MG/250 ML PREMIX 200 MG IV (16:16)
--- NOTE | 2022-09-07 17:07 | P.CONIM_ITS ---
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 He had been on chronic ambulatory peritoneal dialysis for the last 7 years or so until recently had to be switched to hemodialysis. He had a bleeding episode in his abdomen that was related to the peritoneal dialysis catheters. Peritoneal dialysis catheters are still in place but he is now being dialyzed from a subclavian catheter. He was in the hospital here in February with atrial flutter and rapid ventricular rate. He was converted using an AV kelsy blocking agent and was sent home to use metoprolol on an as- needed basis. For several days he has noticed his heart rate to be elevated. He came into the emergency room today where his heart rate is 140. He is in atrial flutter. His blood pressure is 140/114. He feels fine and is not hemodynamically unstable. Other associated illnesses include bronchopneumonitis, Crohn's disease, psoriatic arthritis, polyarteritis, celiac disease and a fairly painful neuropathy. He was placed on an esmolol drip and is now at 200 mcg/min. He is still in atrial flutter with a rate of 137. I have been asked to see him because of the persistent elevation in his heart rate. Review of Systems Narrative: Review of systems is negative Medications/Allergies Home Medications Medication Instructions Recorded Confirmed Last Taken Type albuterol sulfate 90 mcg/actuation 2 puff inhalation Q6H PRN 12/02/21 09/07/22 Unknown History aerosol inhaler Shortness Of Breath omega 4-gca-lcy-fish oil 60 mg-90 1 cap PO DAILY 02/08/22 09/07/22 03/18/22 History mg-500 mg capsule (Fish Oil) Saccharomyces boulardii 250 mg 5,000 mmu cells PO DAILY 03/09/22 09/07/22 03/18/22 History capsule (Daily Probiotic (S. boulardii)) metoprolol succinate 50 mg 50 mg PO DAILY PRN 03/18/22 09/07/22 09/06/22 Rx tablet,extended release 24 hr tachyarrhythmias #30 tabs sildenafil (pulm.hypertension) 20 20 mg PO DAILY PRN sexual activity 06/27/22 09/07/22 Unknown Rx mg tablet #30 tabs ondansetron 4 mg disintegrating 4 mg PO Q8H #30 tabs 09/01/22 09/07/22 Unknown Rx tablet oxycodone 5 mg tablet 5 mg PO Q8H PRN Pain 09/07/22 09/07/22 Unknown History Allergies Allergy/AdvReac Type Severity Reaction Status Date / Time No Known Allergies Allergy Verified 09/07/22 09:10 Current Medications Generic Name Dose Route Start Last Admin Trade Name Freq PRN Reason Stop Dose Admin Diltiazem HCl 30 mg 09/07/22 11:30 09/07/22 11:56 Diltiazem 30 Mg Tablet PO 30 mg Q6H FORTINO Administration Esmolol HCl 2,500 mg in 250 mls @ 0 mls/hr 09/07/22 11:15 09/07/22 16:16 Brevibloc Drip IV 524.91 mcg/kg/min .Q0M FORTINO 200 mls/hr Administration Protocol Per Protocol PFSH Acute PFSH: Medical History Atrial flutter with rapid ventricular response Celiac disease Close exposure to COVID-19 virus Inflammatory arthritis Neuropathy 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 Plantar fasciitis of left foot Plaque psoriasis Psoriatic arthritis Surgical History History of hernia repair History of kidney surgery History of placement of ear tubes History of surgery on arm History of tonsillectomy and adenoidectomy Social History Smoking and tobacco status: former smoker Quit status (tobacco): has quit using tobacco Year quit tobacco: 2004 Former quit date comment: cigarettes then cigars Alcohol intake: never Lives independently: Yes Household members: spouse Marital status: History of recent travel: No Vitals/I&O/Wt Last Vital Signs Temp 99.3 F 09/07/22 08:29 Pulse 136 H 09/07/22 16:25 Resp 22 H 09/07/22 16:25 BP 162/121 09/07/22 16:25 Pulse Ox 99 09/07/22 16:25 O2 Del Method 09/07/22 08:59 09/07/22 09/07/22 09/07/22 06:59 14:59 22:59 Intake Total 527.250 / 527.250 72.75 / 600.000 Balance 527.250 / 527.250 72.75 / 600.000 Weight last 48 hrs Weight 140 lb Physical Exam Narrative: GENERAL: Patient is awake alert and interactive. He is thin. Heart rate 140. HEENT: Exam within normal limits. NECK: Supple without jugular vein distention. The carotid upstroke is normal without bruits. BACK: Exam normal. LUNGS: Clear. HEART: Regular rate and rhythm. Tachycardia ABDOMEN: Benign without organomegaly or tenderness. EXTREMITIES: No edema. NEUROLOGIC: Exam normal. SKIN: Unremarkable. Data 09/07/22 08:51 09/07/22 08:51 A&P Assessment and plan (1) Anemia: (2) End stage renal disease on dialysis: (3) Weight loss, abnormal: (4) Psoriatic arthritis: (5) Lower extremity weakness: Qualifiers: Laterality: bilateral Qualified Code(s): R29.898 - Other symptoms and signs involving the musculoskeletal system (6) Atrial flutter with rapid ventricular response: (7) Crohn's disease: (8) Bronchopneumonia: Plan I suspect he is going to need an antiarrhythmic. We cannot use Betapace because of his renal insufficiency. Digoxin is also out of the question. For now I will leave him on the esmolol and will give him a dose of propafenone 300 mg followed by 150 mg 3 times a day. We will see if this will convert him. The other option is electrical cardioversion. He has not been anticoagulated but th at is probably okay given this is atrial flutter and not atrial fibrillation. Consult Attestations Medical Necessity Statement: He will require hospitalization for management of atrial flutter. 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
[2022-09-07] MEDS: oxyCODONE 5 mg IR Tab/Cap PO ×2 (17:26→18:56)
[2022-09-07] MEDS: propafenone 150 mg Tablet 300 MG PO (18:55)
[2022-09-07] MEDS: metoprolol tartrate 50 mg Tablet PO (18:56)
--- NOTE | 2022-09-07 19:15 | PM.CONSULT ---
Providers/Reason For Consult Consulting Physician/Specialty*: Nephrology Reason for Consult*: ESRD Attending Physician: Tavo Meadows MD Primary Care Provider: Jonathan Hay DO History of Present Illness History of Present Illness patient is a 42-year-old male with past medical history of end-stage renal disease, hypertension presented to the emergency department complaining of palpitations, was noted to be in A. fib with regular response. He gets dialysis Monday schedule and had dialysis yesterday he used to be on peritoneal dialysis for the last 8 years was recently switched to hemodialysis about month ago. He was started on esmolol drip. Lab data significant for anemia with a hemoglobin of 7.0, potassium of 5.5. Nephrology consultation was requested for ongoing hemodialysis. Review of Systems Narrative: Other 12 point review of systems negative except those mentioned in the HPI above Medications/Allergies Home Medications Medication Instructions Recorded Confirmed Last Taken Type albuterol sulfate 90 mcg/actuation 2 puff inhalation Q6H PRN 12/02/21 09/07/22 Unknown History aerosol inhaler Shortness Of Breath omega 1-msx-usz-fish oil 60 mg-90 1 cap PO DAILY 02/08/22 09/07/22 03/18/22 History mg-500 mg capsule (Fish Oil) Saccharomyces boulardii 250 mg 5,000 mmu cells PO DAILY 03/09/22 09/07/22 03/18/22 History capsule (Daily Probiotic (S. boulardii)) metoprolol succinate 50 mg 50 mg PO DAILY PRN 03/18/22 09/07/22 09/06/22 Rx tablet,extended release 24 hr tachyarrhythmias #30 tabs sildenafil (pulm.hypertension) 20 20 mg PO DAILY PRN sexual activity 06/27/22 09/07/22 Unknown Rx mg tablet #30 tabs ondansetron 4 mg disintegrating 4 mg PO Q8H #30 tabs 09/01/22 09/07/22 Unknown Rx tablet oxycodone 5 mg tablet 5 mg PO Q8H PRN Pain 09/07/22 09/07/22 Unknown History Allergies Allergy/AdvReac Type Severity Reaction Status Date / Time No Known Allergies Allergy Verified 09/07/22 09:10 Current Medications Generic Name Dose Route Start Last Admin Trade Name Freq PRN Reason Stop Dose Admin Diltiazem HCl 30 mg 09/07/22 11:30 09/07/22 18:56 Diltiazem 30 Mg Tablet PO 30 mg Q6H FORTINO Administration Esmolol HCl 2,500 mg in 250 mls @ 0 mls/hr 09/07/22 11:15 09/07/22 16:16 Brevibloc Drip IV 524.91 mcg/kg/min .Q0M FORTINO 200 mls/hr Administration Protocol Per Protocol Metoprolol Tartrate 50 mg 09/07/22 18:00 09/07/22 18:56 Metoprolol Tartrate 50 Mg Tablet PO 50 mg BID FORTINO Administration Oxycodone HCl 5 mg 09/07/22 17:20 09/07/22 18:56 Oxycodone 5 Mg Ir Tab/Cap PO 5 mg Q6H PRN Administration MODERATE PAIN PFSH Acute PFSH: Medical History Atrial flutter with rapid ventricular response Celiac disease Close exposure to COVID-19 virus Inflammatory arthritis Neuropathy 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 Plantar fasciitis of left foot Plaque psoriasis Psoriatic arthritis Surgical History History of hernia repair History of kidney surgery History of placement of ear tubes History of surgery on arm History of tonsillectomy and adenoidectomy Social History Smoking and tobacco status: former smoker Quit status (tobacco): has quit using tobacco Year quit tobacco: 2004 Former quit date comment: cigarettes then cigars Alcohol intake: never Lives independently: Yes Household members: spouse Marital status: History of recent travel: No Vitals/I&O/Wt Last Vital Signs Temp 99.3 F 09/07/22 08:29 Pulse 136 H 09/07/22 18:39 Resp 24 H 09/07/22 18:56 BP 162/121 09/07/22 18:39 Pulse Ox 96 09/07/22 18:56 O2 Del Method 09/07/22 08:59 09/07/22 09/07/22 09/07/22 06:59 14:59 22:59 Intake Total 527.250 / 527.250 72.75 / 600.000 Balance 527.250 / 527.250 72.75 / 600.000 Weight last 48 hrs Weight 63.503 kg Physical Exam Narrative: Patient awake, alert, no acute distress No pedal edema Tachycardic, irregular rhythm Data 09/07/22 08:51 09/07/22 08:51 A&P Assessment and plan (1) End stage renal disease on dialysis: Plan 1. End-stage renal disease: On TTS schedule as outpatient, status dialysis yesterday, but patient is hypokalemic. Will run short treatment today-2 hours 2K bath 2. Atrial flutter with RVR: Currently on esmolol drip. 3. Anemia: With hemoglobin of 7.0, will order Epogen if available. Will need transfusion if hemoglobin drops below 7.. Related using audiovisual cart. Time spent 30 minutes Consult Attestations Medical Necessity Statement: He will require hospitalization for management of atrial flutter. 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
[2022-09-07] MEDS: esmolol drip 2,500 MG/250 ML PREMIX 76.2 MG IV ×2 (20:06→22:53)
--- NOTE | 2022-09-07 20:13 | PC.NURSE ---
1804: Pt arrives to ICU from [facility]. Esmolol infusing at 200mcg/kg/min. Pt asymptomatic. He does complain of his neuropathy hurting when his feet are cold. Warmed blankets provided. He ate well at diner time. pt stated he does not make urine. 1924: Bedside report completed with DELMY Rajan
[2022-09-07] MEDS: ondansetron 2 mg/ML SDV 2 mL 4 MG IVP (20:43)
[2022-09-07] MEDS: propafenone 150 mg Tablet PO (20:44)
[2022-09-07] MEDS: sennosides-docusate Tablet 1 TAB PO (22:24)
[2022-09-07] MEDS: diphenhydrAMINE 25 mg Capsule PO (22:24)
[2022-09-08] VITALS (58 sets, daily range): BP systolic 108–167; BP diastolic 71–120; PULSE 71–138; RESP 11–33; TEMP 36.4–37.3; O2SAT 88–100
[2022-09-08] MEDS: acetaminophen 325 mg Tablet 650 MG PO (01:12)
[2022-09-08] MEDS: esmolol drip 2,500 MG/250 ML PREMIX 76.2 MG IV ×2 (02:41→06:03)
[2022-09-08 03:26] LABS: Basophils % 0.3 %; Eosinophils # 0.5 10^3/uL (0.0-0.8); Eosinophils % 7.4 %; Hematocrit 23.6 % (42.0-52.0); Hemoglobin 7.3 g/dL (11.7-16.6); Lymphocytes # 1.7 10^3/uL (0.8-4.8); Lymphocytes % 27.9 %; Mean Corpuscular HGB Conc 30.9 g/dL (30.0-36.0); Mean Corpuscular Volume 90.4 fl (80-94); Mean Platelet Volume 9.7 fL (7.4-10.4); Monocytes # 0.8 10^3/uL (0.2-0.9); Monocytes % 13.4 %; Neutrophils # 3.07 10^3/uL (1.8-7.7); Neutrophils % 50.8 %; Nucleated Red Blood Cells % 0 %; Platelet Count 254 10^3/cmm (130-400); Red Blood Count 2.61 10^6/uL (4.1-5.3); Red Cell Distribution Width 15.9 % (12.1-15.1); White Blood Count 6.1 10^3/uL (4.0-10.0)
[2022-09-08 03:56] LABS: Alanine Aminotransferase 25 U/L (0-41); Albumin Level 3.5 g/dL (3.5-5.2); Alkaline Phosphatase 62 U/L (40-130); Anion Gap 13.5 (5-19); Aspartate Amino Transferase 18 U/L (0-40); Blood Urea Nitrogen 27 mg/dL (6-20); Calcium 9.7 mg/dL (8.5-10.5); Carbon Dioxide 29 mmol/L (22-29); Chloride 101 mmol/L (98-107); Globulin 2.9 g/dL (1.3-4.6); Glomerular Filtration Rate 19.9 mL/min (90-130); Glucose 85 mg/dL (65-115); Osmolality Calculated 290 mOsm/kg (285-295); Potassium 5.5 mmol/L (3.5-5.1); Sodium 138 mmol/L (136-145); Total Bilirubin 0.2 mg/dL (0.15-1.2); Total Protein 6.4 g/dL (6.6-8.7)
[2022-09-08] MEDS: dilTIAZem 30 mg Tablet PO (06:02)
--- NOTE | 2022-09-08 07:20 | PM.PN ---
Subjective Subjective: Chidi has been in the ICU overnight. No problems. Still in atrial flutter rate now about 125. No other problems. Vitals/I&O/Wt Last Vital Signs Temp 99.1 F 09/08/22 03:15 Pulse 135 H 09/08/22 06:00 Resp 13 09/08/22 06:00 BP 160/120 09/08/22 06:00 Pulse Ox 93 09/08/22 06:00 O2 Del Method 09/08/22 00:00 09/07/22 09/08/22 09/08/22 22:59 06:59 14:59 Intake Total 718.00 / 7863.827 8163 / 2245.250 Output Total 1500 / 1500 Balance 718.00 / 1245.250 -500 / 745.250 Weight last 48 hrs Weight 153 lb 9.6 oz Weight 153 lb 3.54 oz Weight 140 lb Physical Exam Narrative: GENERAL: In general he is alert and awake and in no distress HEENT: Exam within normal limits. NECK: Supple without jugular vein distention. The carotid upstroke is normal without bruits. BACK: Exam normal. LUNGS: Clear. HEART: Regular tachycardia ABDOMEN: Benign without organomegaly or tenderness. EXTREMITIES: No edema. NEUROLOGIC: Exam normal. SKIN: Unremarkable. Data 09/08/22 03:14 09/08/22 03:14 A&P Assessment and plan (1) End stage renal disease on dialysis: (2) Anemia: (3) Weight loss, abnormal: (4) Atrial flutter with rapid ventricular response: (5) Asthma: (6) Crohn's disease: (7) Fatigue: (8) ESRD on peritoneal dialysis: Plan Direct-current cardioversion today at 8:00. Attestations Medical Necessity Statement*: Admission for atrial flutter and renal failure. 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
--- NOTE | 2022-09-08 07:35 | ANES.PREANE2 ---
Pre-Anesthetic Assessment Height/Weight: Height 1.83 m Weight 69.672 kg Temp Pulse Resp BP Pulse Ox O2 Del Method 99.1 F 135 H 13 160/120 93 09/08/22 03:15 09/08/22 06:00 09/08/22 06:00 09/08/22 06:00 09/08/22 06:00 09/08/22 00:00 Preop Diagnosis: a flutter Cardioversion Familial anesthetic complications: I require a lot of anesthesia, I got told I needed the amount for a 300 lb man Was Beta Kristen taken within 24 hours: N/A Was Clonidine taken within 24 hours: N/A Last intake: > 8 hrs, small sips of clears with meds Social No alcohol and No tobacco Exam alert, oriented x 3, clear to auscultation bilaterally and regular rate & rhythm tachy Airway Mallampati: Class II Dentition: full Pulmonary bronchopneumonitis (chronic) CV/HEM Atrial Fibrillation (a flutter) and Anemia (ESRD - not taking epogen) Chronic Renal Failure (d/t IgA nephropathy - Dialysis last on 09/06) GI crohn's disease, celiac disease Metabolic Potassium 5.5 - avoid succinylcholine [facility] psoriatic arthritis Anesthetic Plan ASA status: 4 Anesthesia: MAC Risk of > 500 ml blood loss (7ml/kg in children): No Medications/Allergies Home Medications Medication Instructions Recorded Confirmed Last Taken Type albuterol sulfate 90 mcg/actuation 2 puff inhalation Q6H PRN 12/02/21 09/07/22 Unknown History aerosol inhaler Shortness Of Breath omega 6-sra-izi-fish oil 60 mg-90 1 cap PO DAILY 02/08/22 09/07/22 03/18/22 History mg-500 mg capsule (Fish Oil) Saccharomyces boulardii 250 mg 5,000 mmu cells PO DAILY 03/09/22 09/07/22 03/18/22 History capsule (Daily Probiotic (S. boulardii)) metoprolol succinate 50 mg 50 mg PO DAILY PRN 03/18/22 09/07/22 09/06/22 Rx tablet,extended release 24 hr tachyarrhythmias #30 tabs sildenafil (pulm.hypertension) 20 20 mg PO DAILY PRN sexual activity 06/27/22 09/07/22 Unknown Rx mg tablet #30 tabs ondansetron 4 mg disintegrating 4 mg PO Q8H #30 tabs 09/01/22 09/07/22 Unknown Rx tablet oxycodone 5 mg tablet 5 mg PO Q8H PRN Pain 09/07/22 09/07/22 Unknown History Allergies Allergy/AdvReac Type Severity Reaction Status Date / Time No Known Allergies Allergy Verified 09/07/22 09:10 Current Medications Generic Name Dose Route Start Last Admin Trade Name Freq PRN Reason Stop Dose Admin Acetaminophen 650 mg 09/07/22 16:16 09/08/22 01:12 Acetaminophen 325 Mg Tablet PO 650 mg Q6H PRN Administration MILD PAIN Esmolol HCl 2,500 mg in 250 mls @ 0 mls/hr 09/07/22 11:15 09/08/22 06:03 Brevibloc Drip IV 200 mcg/kg/min .Q0M FORTINO 76.2 mls/hr Administration Protocol Per Protocol Metoprolol Tartrate 50 mg 09/07/22 18:00 09/07/22 18:56 Metoprolol Tartrate 50 Mg Tablet PO 50 mg BID FORTINO Administration Ondansetron HCl 4 mg 09/07/22 16:06 09/07/22 20:43 Ondansetron 2 Mg/Ml Sdv 2 Ml IVP 4 mg Q6H PRN Administration NAUSEA AND VOMITING Oxycodone HCl 5 mg 09/07/22 17:20 09/07/22 18:56 Oxycodone 5 Mg Ir Tab/Cap PO 5 mg Q6H PRN Administration MODERATE PAIN Propafenone HCl 150 mg 09/07/22 21:00 09/07/22 20:44 Propafenone 150 Mg Tablet PO 150 mg TID FORTINO Administration Senna/Docusate Sodium 1 tab 09/07/22 22:20 09/07/22 22:24 Sennosides-Docusate Tablet PO 1 tab BID FORTINO Administration PFSH Anesthesia Medical History Atrial flutter with rapid ventricular response Celiac disease Close exposure to COVID-19 virus Inflammatory arthritis Neuropathy 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 Plantar fasciitis of left foot Plaque psoriasis Psoriatic arthritis Surgical History History of hernia repair History of kidney surgery History of placement of ear tubes History of surgery on arm History of tonsillectomy and adenoidectomy Social History Smoking and tobacco status: former smoker Quit status (tobacco): has quit using tobacco Year quit tobacco: 2004 Former quit date comment: cigarettes then cigars Alcohol intake: never Lives independently: Yes Household members: spouse Marital status: History of recent travel: No Data Anesthesia 09/08/22 03:14 09/08/22 03:14 Short CBC 09/07/22 09/08/22 Range/Units 08:51 03:14 WBC 6.5 6.1 (4.0-10.0) 10^3/uL Hgb 7.0 L 7.3 L (11.7-16.6) g/dL Hct 22.4 L 23.6 L (42.0-52.0) % MCV 89.6 90.4 (80-94) fl Plt Count 257 254 (130-400) 10^3/cmm Neut % (Auto) 55.9 50.8 % Neut # (Auto) 3.65 3.07 (1.8-7.7) 10^3/uL BMP 09/07/22 09/08/22 08:51 03:14 Sodium 140 138 Potassium 5.5 H 5.5 H Chloride 97 L 101 Carbon Dioxide 33 H 29 BUN 31 H 27 H Creatinine 5.6 H* 3.4 H Glucose 122 H 85 Calcium 9.8 9.7 Cardiac Enzymes 09/07/22 09/07/22 09/07/22 Range/Units 08:51 10:34 15:00 Troponin T Baseline 366 H* (0-15) ng/L Troponin T 120 Minute 350.7 H (0-15) ng/L Delta Troponin T -15.3 L (0-10) ABS# Troponin T Hi Sens 6Hr 328.7 H (0-15) ng/L Troponin T Hi Sens 6Hr Delta -37.3 L (0-12) ng/L Liver Function 09/07/22 09/08/22 Range/Units 08:51 03:14 Total Bilirubin 0.2 0.2 (0.15-1.2) mg/dL AST 16 18 (0-40) U/L ALT 20 25 (0-41) U/L Alkaline Phosphatase 70 62 (40-130) U/L Albumin 3.4 L 3.5 (3.5-5.2) g/dL Blood Bank 09/07/22 10:34 Blood Type A Positive Rho(D) Type Positive Antibody Screen Negative Cardiac Studies: No Data to Display
--- NOTE | 2022-09-08 08:09 | PM.PROC ---
Procedure Note: Date of procedure: 09/08/22 Pre-procedure diagnosis: Atrial flutter resistant to medication Post-procedure diagnosis: same Procedure: Patient was provided informed consent. Anesthesiology was consulted for sedation. Once adequate anesthesia was secured, patient was cardioverted once with 75 J using the biphasic machine. This resulted in conversion to sinus rhythm. Patient tolerated the procedure well without complication. Performing Provider: Mino Wagner Complications: None Coding Level of Care Code Established Pt Acute Senior Project Controls Specialist for Chg Fwd Patient Type Established History Detailed Exam Detailed Medical Decision Making Moderate Complexity
[2022-09-08] MEDS: ondansetron 2 mg/ML SDV 2 mL 4 MG IVP (09:10)
--- NOTE | 2022-09-08 09:14 | PM.PN ---
Subjective Subjective: Chidi reports he feels about the same. Concerned that his heart rhythm is better yet. No chest pain but still has palpitations. Medications: Reviewed: Yes Vitals/I&O/Wt Last Vital Signs Temp 99.1 F 09/08/22 03:15 Pulse 135 H 09/08/22 06:00 Resp 13 09/08/22 06:00 BP 160/120 09/08/22 06:00 Pulse Ox 93 09/08/22 06:00 O2 Del Method 09/08/22 00:00 09/07/22 09/08/22 09/08/22 22:59 06:59 14:59 Intake Total 718.00 / 4654.765 7106 / 2245.250 0 / 0 Output Total 1500 / 1500 Balance 718.00 / 1245.250 -500 / 745.250 0 / 0 Weight last 48 hrs Weight 69.672 kg Weight 69.5 kg Weight 63.503 kg Physical Exam Narrative: General exam no distress Neck is supple no lymphadenopathy or thyromegaly Cardiovascular tachycardic, regular, no murmur. Lungs clear no wheezing or crackles Abdomen demonstrates peritoneal dialysis catheter. No tenderness. No obvious organomegaly. Extremities show no cyanosis clubbing or edema, cap refill brisk Skin no rash Data 09/08/22 03:14 09/08/22 03:14 A&P Assessment and plan (1) Atrial flutter with rapid ventricular response: Admission to ICU. He has failed Cardizem, and esmolol was not controlling the rate as adequately as we would hope. Patient has had recurrent episodes of atrial flutter TSH was checked and normal. Magnesium slightly high. Potassium is slightly elevated, but not tremendously so for this dialysis patient Continue esmolol, titrate for rate control. Cardiology is planning on cardioversion today. Discontinue Cardizem. Continue metoprolol Add Norvasc 5 mg a day for hypertension Heparin for DVT prophylaxis. Will discuss with him anticoagulation after calculating his [id number] score but I suspect he will not have. Anticoagulation would be a significant risk as he has severe anemia, and history of recent hemorrhage from peritoneal catheter Cardiology has initiated propafenone. Hopefully after cardioversion this will prevent recurrence of atrial flutter. (2) Anemia: Does have significant anemia Will defer to nephrology regarding Epogen. At this point he appears to be hemodynamically stable. (3) End stage renal disease on dialysis: Nephrology consult for continued hemodialysis Normally has dialysis on Monday. Plan History of celiac disease. Placed on gluten-free diet Other medical problems as outlined in past medical history Full code Pharmacologic prophylaxis contraindicated secondary to significant anemia. Mechanical prophylaxis was placed. Attestations Medical Necessity Statement*: Needs continued hospitalization for close monitoring secondary to persistent atrial flutter with planned cardioversion today. Coding Level of Care Code Acute Director Of Sleep for [facility] Dominik Diagnoses Atrial flutter with rapid ventricular response I48.92 Anemia D64.9 End stage renal disease on dialysis N18.6; Z99.2
[2022-09-08] MEDS: metoprolol tartrate 50 mg Tablet PO ×2 (09:26→18:03)
[2022-09-08] MEDS: sennosides-docusate Tablet 1 TAB PO ×2 (09:26→18:03)
[2022-09-08] MEDS: amlodipine 5 mg Tablet PO (09:26)
[2022-09-08] MEDS: propafenone 150 mg Tablet PO ×3 (09:27→20:03)
[2022-09-08] MEDS: metoclopramide 5 mg/mL SDV 2 mL 10 MG IVP (09:42)
[2022-09-08 10:02] LABS: Hepatitis A Antibody IgM Non-Reactive (Nonreactive); Hepatitis B Core AB, Total Non-Reactive (Nonreactive); Hepatitis B Surface AB 324.2 (11.5-1000); Hepatitis B Surface Antigen Non-Reactive (Nonreactive); Hepatitis C Virus Antibody Non-Reactive (Nonreactive)
--- NOTE | 2022-09-08 11:24 | USCV_ITS ---
Chidi Benz Age: 42 Gender: M : 1980 Exam Date: 09/08/2022 19:12 Ordering Phys: Tavo Meadows MD Technologist: ROLAN [place] [facility] [place]: atrial fibrillation. No history of cardiac intervention per patient. BP: 156 / 91 HR: 81 Rhythm: Sinus Technical Quality: Good MEASUREMENTS (Male / Female) Normal Values 2D ECHO LV Diastolic Diameter PLAX 5.1 cm 4.2 - 5.9 / 3.9 - 5.3 cm LV Systolic Diameter PLAX 3.5 cm IVS Diastolic Thickness 1.1 cm 0.6 - 1.0 / 0.6 - 0.9 cm IVS Systolic Thickness 1.6 cm LVPW Diastolic Thickness 1.3 cm 0.6 - 1.0 / 0.6 - 0.9 cm LVPW Systolic Thickness 1.9 cm LVOT Diameter 1.9 cm LV Ejection Fraction 2D Teich 59.0 % LV Ejection Fraction MOD 2C 62.0 % LV Ejection Fraction 2C AL 61.8 % LA Diameter 3.9 cm LA Width 3.6 cm LA Height 5.9 cm RA Width 3.2 cm RA Height 4.2 cm Aorta at Sinotubular Diameter 2.8 cm IVC Diameter 2.3 cm M-MODE Aortic Annulus Diameter 2.9 cm LA Ao Ratio MM 1.3 MV E Point Septal Separation 0.4 cm DOPPLER AV Peak Velocity 142.0 cm/s LVOT Peak Velocity 85.0 cm/s AV Area Cont Eq vti 1.6 cm squared AV Area Cont Eq pk 1.7 cm squared MV Area PHT 3.3 cm squared Mitral E to A Ratio 1.4 MV E' Velocity 53.5 cm/s Mitral E to MV E' Ratio 8.4 Mitral E to LV E' Lateral Ratio 9.3 Mitral E to LV E' Septal Ratio 7.7 TV Peak E Velocity 94.0 cm/s PV Peak Velocity 94.0 cm/s RV Acceleration Time 0.1 s RV Ejection Time 0.3 s RV AcT/ET 0.4 FINDINGS Left Ventricle Left ventricle is normal in size. LV systolic function is normal with EF of 55 to 60%. No regional wall motion abnormalities are seen. Diastolic function is normal. Right Ventricle Normal in size and function Right Atrium Normal in size Left Atrium Normal in size Mitral Valve Structurally normal mitral valve. Mild mitral regurgitation. Aortic Valve Structurally normal aortic valve.No significant stenosis or regurgitation Tricuspid Valve Mild tricuspid regurgitation Pulmonic Valve Not well visualized Pericardium Normal Aorta Normal in size IVC IVC appears dilated. RA pressure> 10mmHg CONCLUSIONS LV [normal with EF 55 to 60%. Diastolic function is normal. Mild mitral regurgitation IVC is dilated. RA pressure >10mmHg No comparison studies are available Diego Silverio MD (Electronically Signed) Final Date: 09 September 2022 13:22 S
[2022-09-08] MEDS: heparin, porcine 1,000 unit/mL INJ 10 mL HE (13:25)
--- NOTE | 2022-09-08 14:25 | PM.PN ---
Subjective Subjective: getting HD Medications: Reviewed: Yes Vitals/I&O/Wt Last Vital Signs Temp 97.7 F 09/08/22 13:21 Pulse 75 09/08/22 13:57 Resp 16 09/08/22 13:21 BP 150/105 09/08/22 13:21 Pulse Ox 90 09/08/22 12:00 O2 Del Method 09/08/22 00:00 09/07/22 09/08/22 09/08/22 22:59 06:59 14:59 Intake Total 718.00 / 9373.043 7723 / 2245.250 200 / 200 Output Total 1500 / 1500 Balance 718.00 / 1245.250 -500 / 745.250 200 / 200 Weight last 48 hrs Weight 69.672 kg Weight 69.5 kg Weight 63.503 kg Physical Exam Narrative: Patient awake, alert, no acute distress No pedal edema Tachycardic, irregular rhythm Data 09/08/22 03:14 09/08/22 03:14 A&P Assessment and plan (1) End stage renal disease on dialysis: Plan 1. End-stage renal disease: On TTS schedule as outpatient, HD today 2. Atrial flutter with RVR: improved 3. Anemia: With hemoglobin of 7.0, will order Epogen if available. Will need transfusion if hemoglobin drops below 7.. Related using audiovisual cart. Time spent 30 minutes Attestations Medical Necessity Statement*: Needs continued hospitalization for close monitoring secondary to persistent atrial flutter with planned cardioversion today. Coding Level of Care Code Acute Casing Running Machine Tender for g Fwd Diagnoses End stage renal disease on dialysis N18.6; Z99.2
[2022-09-08] MEDS: epoetin alfa 1000 Unit/0.05 mL (ESRD) 20000 UNIT SUBCUT (16:40)
[2022-09-08] MEDS: diphenhydrAMINE 25 mg Capsule PO (20:37)
[2022-09-09] VITALS (10 sets, daily range): BP systolic 135–162; BP diastolic 66–101; PULSE 72–99; RESP 16–25; TEMP 36.8–37; O2SAT 91–98
[2022-09-09 03:03] LABS: Basophils % 0.5 %; Eosinophils # 0.4 10^3/uL (0.0-0.8); Eosinophils % 6.8 %; Hematocrit 22.1 % (42.0-52.0); Lymphocytes # 1.7 10^3/uL (0.8-4.8); Lymphocytes % 29.3 %; Mean Corpuscular HGB Conc 31.7 g/dL (30.0-36.0); Mean Corpuscular Hemoglobin 28.1 pg (28.0-34.0); Mean Corpuscular Volume 88.8 fl (80-94); Mean Platelet Volume 10.1 fL (7.4-10.4); Monocytes # 0.9 10^3/uL (0.2-0.9); Monocytes % 15.6 %; Neutrophils # 2.78 10^3/uL (1.8-7.7); Neutrophils % 47.6 %; Nucleated Red Blood Cells % 0 %; Platelet Count 241 10^3/cmm (130-400); Red Blood Count 2.49 10^6/uL (4.1-5.3); Red Cell Distribution Width 15.7 % (12.1-15.1); White Blood Count 5.8 10^3/uL (4.0-10.0)
[2022-09-09 03:31] LABS: Anion Gap 13.6 (5-19); Blood Urea Nitrogen 21 mg/dL (6-20); Calcium 9.8 mg/dL (8.5-10.5); Carbon Dioxide 29 mmol/L (22-29); Chloride 99 mmol/L (98-107); Glucose 86 mg/dL (65-115); Osmolality Calculated 286 mOsm/kg (285-295); Potassium 4.6 mmol/L (3.5-5.1); Sodium 137 mmol/L (136-145)
--- NOTE | 2022-09-09 08:28 | PM.PN ---
Subjective Subjective: Chidi underwent direct-current cardioversion yesterday morning. He was successfully converted to sinus rhythm. He has had no further dysrhythmias. He feels better this morning. He has been maintained on sotalol. Vitals/I&O/Wt Last Vital Signs Temp 98.3 F 09/09/22 05:27 Pulse 94 09/09/22 08:00 Resp 23 H 09/09/22 08:00 BP 147/94 09/09/22 08:00 Pulse Ox 96 09/09/22 08:00 O2 Del Method 09/09/22 07:00 09/08/22 09/09/22 09/09/22 22:59 06:59 14:59 Intake Total 400 / 850 200 / 1050 Output Total 2800 / 2800 0 / 2800 Balance -2400 / -1950 200 / -1750 Weight last 48 hrs Weight 166 lb Weight 166 lb 0.129 oz Weight 153 lb 9.6 oz Weight 153 lb 3.54 oz Weight 140 lb Physical Exam Narrative: GENERAL: In general he looks much better. Sinus rhythm with heart rates in 70s and 80s. HEENT: Exam within normal limits. NECK: Supple without jugular vein distention. The carotid upstroke is normal without bruits. BACK: Exam normal. LUNGS: Clear. HEART: Regular rate and rhythm. ABDOMEN: Benign without organomegaly or tenderness. EXTREMITIES: No edema. NEUROLOGIC: Exam normal. SKIN: Unremarkable. Data 09/09/22 02:48 09/09/22 02:48 A&P Assessment and plan (1) End stage renal disease on dialysis: (2) Anemia: (3) Psoriatic arthritis: (4) Atrial flutter with rapid ventricular response: (5) Fatigue: Plan He can go home from a cardiac standpoint. He is moving to [facility] which is up [place]. Apparently the plan was for him to move today. He should probably be dialyzed today before he leaves. If he does not get dialyzed today he will not get dialyzed until Monday. I would continue him on the propafenone 150 mg 3 times daily and metoprolol 50 mg twice daily. He can identify with a channel opener outsoles up in [place]. Attestations Medical Necessity Statement*: Able to discharge today. Coding Level of Care Code Established Pt Acute Regulatory Assistant for Chg Fwd Patient Type Established History Detailed Exam Detailed Medical Decision Making Moderate Complexity Diagnoses End stage renal disease on dialysis N18.6; Z99.2 Anemia D64.9 Psoriatic arthritis L40.50 Atrial flutter with rapid ventricular response I48.92 Fatigue R53.83
[2022-09-09] MEDS: metoprolol tartrate 50 mg Tablet PO (08:47)
[2022-09-09] MEDS: sennosides-docusate Tablet 1 TAB PO (08:47)
[2022-09-09] MEDS: propafenone 150 mg Tablet PO ×2 (08:47→15:52)
[2022-09-09] MEDS: amlodipine 5 mg Tablet 10 MG PO (08:47)
--- NOTE | 2022-09-09 10:40 | PC.CHAP ---
Pastoral Care Encounter/Spiritual Assessment Type of Contact [] Declined train operator visit [] Patient/Family/Request visit [] Outpatient visit [] Follow-up visit [] Physician referral [] Code/Alert [x] Routine visit [] Staff referral [] Actively dying [x] Patient sleeping [] Family support [] [] Out of room [] Palliative care [] [] Receiving care in room [] Pre-surgical visit [] Trauma [] Long length of stay [x] ICU visit [x] Other: no contact with PT but he continues to sleep Relational/Emotional Strength [] Patient feels connected with others/family/visitors/staff [] Distress [] Loneliness/isolation [] Abandonment Spirituality of Patient [] Person of Shena [] Attends Yazidism of their Shena [] Believes in Prayer [] Reads Bible or Shinto materials [] There are Spiritual issues to be addressed Community Arts Worker Interventions [x] Prayer [] Active listening [] Non-anxious presence [] Spiritual/emotional support [] Crisis/trauma care [] Spiritual counseling [] Bereavement support [] Provided bereavement packet [] Provided Bible/devotional materials [] Provided toy/stuffed animal, coloring book to patient or family member [] Provided Communion [] Anointing/[place] [] Salvation [x] Completed spiritual assessment [] Other: Impact on Illness or Injury [] Angry [] Fearful [] Anxious [] Often cries [] Exhaustion [] Unable to work [] Unable to attend zoroastrian [] Unable to walk/stand [] Unable to read [] Unable to drive [] Unable to eat/drink [] Unable to sleep [] Unable to be with family [] Patient intubated [] Other: Summary Time spent with patient
--- NOTE | 2022-09-09 12:20 | P.DS_ITS ---
Discharge Providers Date of Admission: 09/08/22 09:51 Date of Discharge: September 09, 2022 Attending Provider at Admission: Tavo Meadows MD Attending Provider at Discharge: Tavo Meadows MD Primary Care Provider: Jonathan Hay DO Diagnoses at Discharge Discharge Diagnosis (1) End stage renal disease on dialysis: Status: Acute (2) Anemia: Status: Acute (3) Psoriatic arthritis: Status: Acute (4) Atrial flutter with rapid ventricular response: Status: Acute (5) Fatigue: Status: Acute Reason for Visit Reason for Visit: afib since yesterday Hospital Course Hospital Course Chidi is a 42-year-old white male with history of end-stage renal disease on hemodialysis who presented with palpitations. He was found to be in atrial flutter. Troponin was elevated but flat, elevation secondary to renal failure and atrial flutter. He was placed on Cardizem which was not effective and eventually was placed on esmolol which had only a mild effect. Despite being on esmolol and initiation of metoprolol and Cardizem heart rate and rhythm did not change significantly. Cardiology defibrillated him on September 08. He was not a candidate for anticoagulation secondary to his significant anemia and recent hemorrhage from peritoneal dialysis catheter. With cardioversion, addition of propafenone, increase of metoprolol he stayed in sinus rhythm following his cardioversion. Norvasc was added for hypertension. He also received dialysis while in the hospital, and should be due for dialysis again on Monday. He indicates he is moving to the [facility] and will follow-up with primary care provider 3 to 5 days, cardiology 2 weeks, and continue to receive dialysis on Monday. He was given an opportunity to ask questions, and agreed with the current plan. He does have significant anemia, and this will be followed by nephrology as an outpatient. Final echocardiogram report was not available, preliminary indicated preserved EF, normal aortic valve area. Physical Exam Narrative: General exam no distress Neck is supple Cardiovascular regular rate and rhythm without murmur, right chest hemodialysis catheter noted Lungs clear Abdomen is soft, positive bowel sounds. Peritoneal dialysis catheter noted exam is deferred Extremities no sinus clubbing or edema Skin without rash Discharge Data Studies Completed and Pending Completed Studies During Hospitalization Category Date Time Status XR chest 1V portable [id number] Stat Exams 09/07/22 08:34 Completed Pending at discharge Category Date Time Status Drug Screen, Urine Stat Lab 09/07/22 08:34 Uncollected Urinalysis Stat Lab 09/07/22 08:34 Uncollected CV. echo complete* [id number] Routine Ultrasound 09/08/22 11:24 Taken Radiology Impressions Chest X-Ray 09/07/22 08:34 IMPRESSION: No chest radiographic evidence of acute cardiopulmonary disease. Laboratory Results WBC 5.8 10^3/uL (4.0-10.0) 09/09/22 02:48 RBC 2.49 10^6/uL (4.1-5.3) L 09/09/22 02:48 Hgb 7.0 g/dL (11.7-16.6) L 09/09/22 02:48 Hct 22.1 % (42.0-52.0) L 09/09/22 02:48 MCV 88.8 fl (80-94) 09/09/22 02:48 MCH 28.1 pg (28.0-34.0) 09/09/22 02:48 MCHC 31.7 g/dL (30.0-36.0) 09/09/22 02:48 RDW 15.7 % (12.1-15.1) H 09/09/22 02:48 Plt Count 241 10^3/cmm (130-400) 09/09/22 02:48 MPV 10.1 fL (7.4-10.4) 09/09/22 02:48 Neut % (Auto) 47.6 % 09/09/22 02:48 Lymph % (Auto) 29.3 % 09/09/22 02:48 Hardy % (Auto) 15.6 % 09/09/22 02:48 Eos % (Auto) 6.8 % 09/09/22 02:48 Baso % (Auto) 0.5 % 09/09/22 02:48 Neut # (Auto) 2.78 10^3/uL (1.8-7.7) 09/09/22 02:48 Lymph # (Auto) 1.7 10^3/uL (0.8-4.8) 09/09/22 02:48 Hardy # (Auto) 0.9 10^3/uL (0.2-0.9) 09/09/22 02:48 Eos # (Auto) 0.4 10^3/uL (0.0-0.8) 09/09/22 02:48 Baso # (Auto) 0.0 10^3/uL (0.0-0.1) 09/09/22 02:48 Nucleated RBC % (auto) 0 % 09/09/22 02:48 Nucleated RBCs # 0.0 /100WBC 09/09/22 02:48 Sodium 137 mmol/L (136-145) 09/09/22 02:48 Potassium 4.6 mmol/L (3.5-5.1) 09/09/22 02:48 Chloride 99 mmol/L (98-107) 09/09/22 02:48 Carbon Dioxide 29 mmol/L (22-29) 09/09/22 02:48 Anion Gap 13.6 (5-19) 09/09/22 02:48 BUN 21 mg/dL (6-20) H 09/09/22 02:48 Creatinine 4.1 mg/dL (0.7-1.2) H 09/09/22 02:48 GFR Calculation 16.0 mL/min (90-130) L 09/09/22 02:48 Glucose 86 mg/dL (65-115) 09/09/22 02:48 Calculated Osmolality 286 mOsm/kg (285-295) 09/09/22 02:48 Calcium 9.8 mg/dL (8.5-10.5) 09/09/22 02:48 Magnesium 2.5 mg/dL (1.7-2.3) H 09/07/22 08:57 Total Bilirubin 0.2 mg/dL (0.15-1.2) 09/08/22 03:14 AST 18 U/L (0-40) 09/08/22 03:14 ALT 25 U/L (0-41) 09/08/22 03:14 Alkaline Phosphatase 62 U/L (40-130) 09/08/22 03:14 Troponin T Baseline 366 ng/L (0-15) H* 09/07/22 08:51 Troponin T 120 Minute 350.7 ng/L (0-15) H 09/07/22 10:34 Delta Troponin T -15.3 ABS# (0-10) L 09/07/22 10:34 Troponin T Hi Sens 6Hr 328.7 ng/L (0-15) H 09/07/22 15:00 Troponin T Hi Sens 6Hr Delta -37.3 ng/L (0-12) L 09/07/22 15:00 Total Protein 6.4 g/dL (6.6-8.7) L 09/08/22 03:14 Albumin 3.5 g/dL (3.5-5.2) 09/08/22 03:14 Globulin 2.9 g/dL (1.3-4.6) 09/08/22 03:14 TSH 1.97 uIU/mL (0.27-4.20) 09/07/22 08:57 Hepatitis A IgM Ab Non-reactive (Nonreactive) 09/07/22 08:51 Hep Bs Antigen Non-reactive (Nonreactive) 09/07/22 08:51 Hep Bs Antibody 324.2 (11.5-1000) 09/07/22 08:51 Hep B Core Total Ab Non-reactive (Nonreactive) 09/07/22 08:51 Hepatitis C Antibody Non-reactive (Nonreactive) 09/07/22 08:51 Blood Type A Positive 09/07/22 10:34 Rho(D) Type Positive 09/07/22 10:34 Antibody Screen Negative 09/07/22 10:34 Vitals Last Vital Signs Temp 98.2 F 09/09/22 11:41 Pulse 83 09/09/22 11:41 Resp 16 09/09/22 11:41 BP 151/101 09/09/22 11:41 Pulse Ox 95 09/09/22 10:01 O2 Del Method 09/09/22 10:01 Discharge Plan Discharge Patient Disposition: Home Condition: Stable Prescriptions: New propafenone 150 mg Tablet 150 mg PO TID Qty: 90 0RF metoprolol tartrate 50 mg Tablet 50 mg PO BID Qty: 60 0RF amlodipine 5 mg Tablet 10 mg PO DAILY Qty: 30 0RF Continued albuterol sulfate 90 mcg/actuation HFA aerosol inhaler 2 puff inhalation Q6H PRN (Reason: Shortness Of Breath) Saccharomyces boulardii [Daily Probiotic (S. boulardii)] 250 mg capsule 5,000 mmu cells PO DAILY omega 5-xvj-lws-fish oil [Fish Oil] 60-90-500 mg capsule 1 cap PO DAILY sildenafil (pulm.hypertension) 20 mg tablet 20 mg PO DAILY PRN (Reason: sexual activity) Qty: 30 0RF Rx Instructions: Take one 1hr prior to sexual activity. ondansetron 4 mg tablet,disintegrating 4 mg PO Q8H Qty: 30 2RF oxycodone 5 mg tablet 5 mg PO Q8H PRN (Reason: Pain) Discontinued metoprolol succinate 50 mg tablet extended release 24 hr 50 mg PO DAILY PRN (Reason: tachyarrhythmias) Qty: 30 0RF Rx Instructions: Take one tablet by mouth for HR>100 Discharge Orders: Discharge Order (Routine); Ordered 09/09/22 Ordered By: Tavo Meadows Referrals: Jonathan Hay DO [Primary Care Provider] - 4-7 days Discharge Diet: Usual diet Discharge Activity: Increase activity as tolerated Patient Instructions: Opioid Safety Activity Restrictions/Additional Instructions: Take all medicine as prescribed Follow-up with cardiology in [facility] in 2 weeks Primary care provider follow-up in 3 to 5 days Keep scheduled dialysis Monday Return for any concerns Patient's Health Concerns: Palpitations Assessment: Atrial flutter Plan of Treatment: Addition of propafenone, increase metoprolol Discharge Attestations Time Spent in Discharge Care*: greater than 30 min Quality Metrics Clinical Quality Measures [ No reported AMI, CVA or VTE this stay] Coding Level of Care Code Acute g FW LA note Diagnoses End stage renal disease on dialysis N18.6; Z99.2 Anemia D64.9 Psoriatic arthritis L40.50 Atrial flutter with rapid ventricular response I48.92 Fatigue R53.83
== END 2022-09-09 16:40 | disposition home or self-care (01) | DRG 308 ==
LOC: ER 12:56 → ICU 17:14
PROVIDERS: Hospitalist; Admitting Provider Internal Medicine; Emergency Provider Family Medicine; PCP Family Medicine; Visit Provider Internal Medicine
DX: I48.92 Unspecified atrial flutter (principal); J18.0 Bronchopneumonia, unspecified organism; N18.6 End stage renal disease; I12.0 Hypertensive chronic kidney disease with stage 5 chronic kidney disease or end stage renal disease; K50.90 Crohn's disease, unspecified, without complications; Z99.2 Dependence on renal dialysis; D63.1 Anemia in chronic kidney disease; L40.50 Arthropathic psoriasis, unspecified; Z79.51 Long term (current) use of inhaled steroids; Z79.891 Long term (current) use of opiate analgesic; G62.9 Polyneuropathy, unspecified; M81.8 Other osteoporosis without current pathological fracture; Z87.891 Personal history of nicotine dependence
CPT/HCPCS: 12345; 36415; 71045; 80048; 80053; 83735; 84443; 84484; 85025; 86705; 86706; 86709; 86803; 86850; 86900; 87340; 90935; 93005; 93306; 96372; 99291; 99292; G0378; J0360; J1644; J2405; J2704; J2765; J3490; Q3014; Q4081